=== PATIENT | female | born 1985 | race Caucasian/White ===

== ENCOUNTER → 2018-01-09 16:06 | Outpatient (CLI) | payer OTHER, SELFPAY ==
[2018-01-17 12:08] LABS: Brief History NOT GIVEN; Calc Gestational Age 18.1; Est Date Determined by US; Maternal Weight 142 lbs; Mother Ethnic Origin CAUCASIAN; Prev Pregnancies Down Syndrome N
== END ==
PROVIDERS: PCP Family Medicine; Visit Provider Specialist
DX: Z36.9 Encounter for antenatal screening, unspecified (principal); Z3A.18 18 weeks gestation of pregnancy
CPT/HCPCS: 36415; 82105

== ENCOUNTER → 2018-01-22 15:50 | Outpatient (CLI) | payer OTHER, SELFPAY ==
--- NOTE | 2018-01-22 15:52 | DI.US.S_ITS ---
PROCEDURE: US OB >= 14 WEEKS FETUS INDICATIONS: 32 year-old female. Assess growth and anatomy. OUTSIDE/PRIOR DATING DATA: Last menstrual period (LMP): 09/05/17. LMP-based estimated date of delivery (EJ): 06/11/18. First dating scan (date and location): 10/30/17 at [facility]. Estimated date of delivery (EJ) from first dating scan: 06/11/18. TECHNIQUE: Real-time scanning was performed of the fetus, with image documentation and biometric measurements. Endovaginal scanning: No COMPARISON: [facility], , OB COMPLETE LESS THAN 14 WKS, 10/30/2017, 8:19. [facility], US OB >= 14 WEEKS FETUS, 01/09/2018, 11:35. FINDINGS: General: A single living intrauterine gestation is present. Presentation: Breech. Placenta: Placental position is posterior, without previa. Amniotic fluid index: 14.4 cm, normal range is 5-24 cm. heart rate: 152 beats per minute. Maternal cervical canal: 6.2 cm long. Normal lower limit is 2.5 cm. biometrics: Biparietal diameter: 4.5 cm equals 19 weeks 5 days. Head circumference: 17.8 cm equals 20 weeks 2 days. Abdominal circumference: 15.8 cm equals 21 weeks zero days. Femur length: 3.4 cm equals 20 weeks 4 days. Estimated gestational age from initial scan: 20 weeks zero days. Composite gestational age from present scan: 20 weeks 3 days Estimated weight and percentile: 369 g, 82nd percentile Measurement variability for biometric dating: +/- 7 days from 14 weeks to 15 weeks 6 days gestation, +/- 10 days from 16 weeks to 21 weeks 6 days gestation, +/- 2 weeks from 22 weeks to 27 weeks 6 days gestation, +/- 3 weeks for 28 weeks gestation or later. weight reference: 4500 g or EFW >90/95% is considered macrosomia or large for gestational age. EFW <10% is small for gestational age. EFW 5% or less is considered intra-uterine growth restriction. Anatomic survey: Neuro: Ventricles are non-dilated at less than 10 mm. Cisterna magna is normal at 3-11 mm. Cerebellum is normal in size and morphology. Nuchal skin fold: Normal at less than 6 mm between 14-21 weeks gestational age. Face: Nose and lips, facial profile are normal. Spine: No evidence for spina bifida. Heart: 4-chambered heart is present, with normal ventricular outflow tracts. Diaphragm: Diaphragm is intact. Stomach: Left-sided stomach is present. Kidneys: Mild left renal pyelectasis with renal pelvis measuring 5.0 mm. Right kidney is normal. Cord: 3-vessel cord has orthotopic insertion. Bladder: Normal in size. Extremities: All 4 extremities identified. IMPRESSION: 1. Single living intrauterine gestation demonstrates appropriate interval growth, with estimated weight at the 82nd percentile. 2. Mild left hydronephrosis, otherwise anatomic survey is normal. Recommend followup. Dictated by: Juan ROPER Interpreted: Kyrie Hendrix MD on 01/23/2018 at 8:42 Approved by: Quentin Ibarra M.D. on 01/26/2018 at 10:06
== END ==
PROVIDERS: PCP Family Medicine; Visit Provider Specialist
DX: Z36.89 Encounter for other specified antenatal screening (principal); Z3A.20 20 weeks gestation of pregnancy
CPT/HCPCS: 76811

== ENCOUNTER → 2018-02-11 14:16 | Outpatient (CLI) | payer OTHER, SELFPAY ==
[2018-02-11 16:11] LABS: Urine N gonorrhoeae NOT DETECTED
[2018-02-11 16:17] LABS: Urine Chlamydia NOT DETECTED
== END ==
PROVIDERS: PCP Family Medicine; Visit Provider Specialist
DX: Z34.82 Encounter for supervision of other normal pregnancy, second trimester (principal); Z3A.22 22 weeks gestation of pregnancy
CPT/HCPCS: 87491; 87591

== ENCOUNTER → 2018-03-16 09:59 | Outpatient (CLI) | payer OTHER, SELFPAY ==
[2018-03-16 14:38] LABS: Hematocrit 31.5 % (36-46); Hemoglobin 10.9 g/dL (12.0-16.0)
[2018-03-16 15:06] LABS: GTT (PREG) 1 Hour PP 50gm Dose 114 mg/dL (76-139)
== END ==
PROVIDERS: PCP Family Medicine; Visit Provider Specialist
DX: Z3A.22 22 weeks gestation of pregnancy (principal); Z34.82 Encounter for supervision of other normal pregnancy, second trimester
CPT/HCPCS: 36415; 82950; 85014; 85018

== ENCOUNTER → 2018-03-25 08:15 | Outpatient (CLI) | payer OTHER, SELFPAY ==
--- NOTE | 2018-03-25 10:59 | DI.US.S_ITS ---
ULTRASOUND OF LEFT AXILLA: 03/25/2018 CLINICAL: Palpable left axilla lump. No prior exams were available for comparison. Grayscale and Doppler ultrasound of the left axilla were performed. Targeted ultrasound was performed in the region of the patient's reported palpable abnormality in the left axilla. A single morphologically normal left axillary lymph node is identified. IMPRESSION: BENIGN Negative ultrasound evaluation of the area of the patient's reported focal palpable abnormality in the left axilla, with only a morphologically normal lymph node demonstrated. There is no sonographic evidence of malignancy. Recommend clinical follow-up for further evaluation and management of the patient's reported symptoms, with return for re-imaging as needed on a clinical basis. Annual screening mammography is also recommended beginning at age 40 (or earlier if the patient has signfiicant risk factors for breast cancer development). These results and recommendations were discussed with the patient by telephone by Dr. Valladares at approximately 9:00 am on 03/25/2018. This exam was interpreted at Station ID: [id number]. Electronically Signed By: Hal Valladares M.D. ecl/:03/25/2018 13:14:05 letter sent: Clinical Evaluation Ultrasound BI-RADS: 2 Benign
== END ==
PROVIDERS: PCP Family Medicine; Visit Provider Specialist
DX: R22.32 Localized swelling, mass and lump, left upper limb (principal)
CPT/HCPCS: 76882

== ENCOUNTER → 2018-05-07 08:59 | Outpatient (CLI) | payer OTHER, SELFPAY ==
[2018-05-08 11:42] LABS: Strep Grp B PCR NEG for Grp B Strep
== END ==
PROVIDERS: PCP Family Medicine; Visit Provider Specialist
DX: Z34.83 Encounter for supervision of other normal pregnancy, third trimester (principal)
CPT/HCPCS: 87653

== ENCOUNTER 2018-06-15 08:27 | Inpatient (IN) | payer OTHER, SELFPAY ==
[2018-06-15 10:29] LABS: Add Manual Diff / Slide Review NO; Basophils Percent Auto 0.2 % (0-2); Eosinophils Percent Auto 0.3 % (2-4); Hematocrit 36.4 % (36-46); Hemoglobin 12.8 g/dL (12.0-16.0); Lymphocytes Percent Auto 15.9 % (25-40); Mean Corpuscular Hemoglobin 34.6 PG (26-34); Mean Corpuscular Volume 98.7 fL (80-100); Monocytes Percent Auto 7.3 % (3-14); Neutrophils Absolute Auto 7500 /uL (3000-5900); Neutrophils Percent Auto 76.3 % (50-75); Platelet Count 275 X10^3/uL (150-400); Red Blood Cell Count 3.69 X10^6/uL (4.0-5.2); Red Cell Distribution Width 13.5 % (11.6-14.8); White Blood Cell Count 9.8 X10^3/uL (4.5-11.0)
[2018-06-15] MEDS: miSOPROStol 25 MCG TABLET VAG (10:49)
[2018-06-15 14:36] VITALS: BP 117/73
--- NOTE | 2018-06-15 16:38 | P.HPOB_ITS ---
OB HPI Date/Time Date of admission: 06/15/18 Date Patient Seen: 06/15/18 Time Patient Seen: 10:36 History of Present Condition Chief complaint: OBS : 2 Para: 1 Estimated Date of Delivery: 06/12/18 Estimated Gestational Age (weeks): 40 Narrative: Shira Anthony is a 33 year old female at 40-,3/7 weeks by dates admitted for induction for oligohydramnios Indications Indication for induction OB: other (Oligohydramnios) History of Present care: good care, initiated at week # (8), number of visits (16) and pounds weight gain (43) Dating criteria: LMP confirmed by 1st trimester US Ultrasounds: abnormal US findings Abnormal ultrasound findings: Left hydronephrosis on 20 week ultrasound that resolved at 28 weeks Obstetrical complications: none Medical complications: none Preadmission Labs Blood type: A (+) positive -: Antibody screen: negative, GBS status: negative, HBsAG: negative, HIV: negative, HSV 1: negative, HSV 2: positive and RPR/VDLR: negative -: Chlamydia screen: not detected and Gonorrhea screen: not detected -: Rubella: immune and Varicella: immune HCAB: negative Sequential screen: Normal Cell-free DNA: Normal 1 hr GTT: 114 Prior (ies) History: 07/06/2015 40 week gestation 8 lb vaginal delivery epidural Evaluation Evaluation Laboratory results: Laboratory Tests 06/15/18 06/15/18 10:00 10:00 WBC 9.8 RBC 3.69 L Hgb 12.8 Hct 36.4 MCV 98.7 MCH 34.6 H MCHC 35.0 RDW 13.5 Plt Count 275 Neut % (Auto) 76.3 H Lymph % (Auto) 15.9 L [place] % (Auto) 7.3 Eos % (Auto) 0.3 L Baso % (Auto) 0.2 Neut # (Auto) 7500 H Blood Type A Positive Antibody Screen Negative PFSH Medical History Anxiety (Chronic) Chronic cough (Chronic) Heavy menstrual period (Chronic) Kidney stones (Chronic ~2002) Painful menstrual periods (Chronic) Chickenpox (Resolved ~1991) Surgical History Status post wrist surgery (Resolved ~2009) Anesthesia (Inactive) History of lithotripsy (~2002) Family History Father Age: 66 Type 2 diabetes mellitus High cholesterol Mother Age: 61 High cholesterol Grandfather No problems noted. Grandmother No problems noted. Family/Other No problems noted. Social History Smoking Status: Never smoker Meds Home Medications Medication Instructions Recorded Confirmed Type vit-iron fum-folic ac 1 cap PO QDAY #0 04/08/17 06/15/18 History [Mynatal] acyclovir 400 mg tablet 400 mg PO BID #60 tab 05/20/18 06/15/18 Rx Allergies Allergy/AdvReac Type Severity Reaction Status Date / Time No Known Allergies Allergy Uncoded 05/13/18 13:36 Review of Systems Review of Systems Patient denies headaches, scotomata, epigastric pain. She had some increased vaginal discharge which was negative for ferning on dry slide. She has noted good movement. No contractions. All systems reviewed & are unremarkable except as noted in HPI and below Exam Vital Signs (past 8 hours): - 06/15/18 14:36 Blood Pressure 117/73 Narrative Exam Narrative: HEENT exam within normal limits. Lungs are clear to auscultation percussion. Heart is regular rate and rhythm no S3-S4 or murmurs. No thyromegaly. The abdomen is gravid. Fundal height of 38 cm. Cervix is closed, posterior, and 50% -1 station. Extremities without edema and nontender. On ultrasound the patient had no fluid. Objective Labs Result Diagrams: 06/15/18 10:00 Labs: Laboratory Results - last 24 hr 06/15/18 06/15/18 10:00 10:00 WBC 9.8 RBC 3.69 L Hgb 12.8 Hct 36.4 MCV 98.7 MCH 34.6 H MCHC 35.0 RDW 13.5 Plt Count 275 Neut % (Auto) 76.3 H Lymph % (Auto) 15.9 L [place] % (Auto) 7.3 Eos % (Auto) 0.3 L Baso % (Auto) 0.2 Neut # (Auto) 7500 H Blood Type A Positive Antibody Screen Negative Assessment and Plan (1) Oligohydramnios antepartum: Current visit: Yes Status: Acute (2) Postmaturity , 40-42 weeks gestation: Current visit: Yes Status: Acute Plan: Plan: Patient at 40-,3/7 weeks by dates with oligohydramnios and non favorable cervix was admitted for Prostin induction.
[2018-06-15] MEDS: LACTATED RINGERS 1,000 ML 100 ML IV (17:12)
--- NOTE | 2018-06-16 08:03 | PM.OBPNLAB ---
Date/Time Date Patient Seen: 06/16/18 Time Patient Seen: 08:03 Pain Control Pain control: tolerating well Pelvic Exam Dilation (cm): 1 Effacement (%): 75 station: 0 Amniotic membrane status: Intact Contractions Contractions on admission: irregular Monitor mode: External Contraction intensity: Mild Status status: Category l Heart Rate Baseline: 140 Monitor Accelerations: Present Monitor Decelerations: Absent Monitor Variability: Moderate Assessment and Plan Assessment: induction ongoing Plan: begin patient augmentation
[2018-06-16] MEDS: OXYTOCIN PREMIX 30 UNIT/500 ML PLAST..BAG IV (08:48)
[2018-06-16] MEDS: miSOPROStol 200 MCG TABLET 800 MCG PR (13:05)
[2018-06-16] MEDS: OXYTOCIN 10 UNIT/ML VIAL IM (13:10)
[2018-06-16] MEDS: TERBUTALINE 1 MG/ML VIAL 0.25 MG SUBCUT (13:10)
--- NOTE | 2018-06-16 13:47 | P.PCNOB_ITS ---
Events: Oligohydramnios Delivery date: 06/16/18 Intrapartal events: Extended Bradycardia Induction method: per misoprostol protocol (Followed by Pitocin) Delivery monitor: external FHT and external uterine Route of delivery: Laceration description: None Estimated blood loss (mL): 400 Anesthesia type: Epidural Narrative: Patient arrived on Labor and delivery for induction for postdates with oligohydramnios. She received 1 dose of Cytotec. She had contractions that prevented further Cytotec and due to the continued non favorability the cervix decision was made to postpone Pitocin. Patient had some rest and then Pitocin was begun the next morning. The patient progressed. There were some intermittent late decelerations but good variability. Patient received an epidural catheter for pain control. Fetus had a prolonged deceleration. During attempts to resuscitate the baby with change of position, O2, and fluid bolus and inadvertent bolus Pitocin was run in. The patient was given subcu terbutaline. At that time the patient had gone from 4cm to complete dilation. She was able to push and deliver spontaneously a viable female . The was placed on maternal abdomen. After cord stopped pulsating the cord was clamped and cut. The placenta delivered spontaneously, intact, with 3 vessels. Likely due to the terbutaline the patient had uterine atony. She was given IM Pitocin, perirectal 100 mg Cytotec. Patient did not have any cervical , vaginal, or perineal tears. Baby 1: Infant gender: Female Presentation: vertex position: Right Occiput Anterior Placenta delivery description: Spontaneous cord vessel description: 3 Vessels score (1 min): 8 score (5 min): 9 Plan for aftercare: Routine care
[2018-06-16] MEDS: IBUPROFEN 600 MG TABLET PO ×2 (16:23→22:12)
[2018-06-17] MEDS: IBUPROFEN 600 MG TABLET PO ×3 (03:36→17:19)
[2018-06-17 07:36] LABS: Add Manual Diff / Slide Review NO; Basophils Percent Auto 0.2 % (0-2); Eosinophils Percent Auto 0.4 % (2-4); Hematocrit 29.5 % (36-46); Hemoglobin 10.2 g/dL (12.0-16.0); Lymphocytes Percent Auto 10.5 % (25-40); Mean Corpuscular HGB Conc 34.7 % (30-36); Mean Corpuscular Hemoglobin 34.8 PG (26-34); Mean Corpuscular Volume 100.2 fL (80-100); Monocytes Percent Auto 5.8 % (3-14); Neutrophils Absolute Auto 11700 /uL (3000-5900); Neutrophils Percent Auto 83.1 % (50-75); Platelet Count 216 X10^3/uL (150-400); Red Blood Cell Count 2.94 X10^6/uL (4.0-5.2); Red Cell Distribution Width 13.7 % (11.6-14.8)
[2018-06-17] MEDS: OXYCODONE/ACETAMINOPHEN 5/325 TABLET 1 TAB PO ×3 (08:19→22:34)
[2018-06-17] MEDS: DOCUSATE 250 MG CAPSULE PO (09:54)
[2018-06-18] MEDS: IBUPROFEN 600 MG TABLET PO ×3 (01:11→14:17)
[2018-06-18] MEDS: OXYCODONE/ACETAMINOPHEN 5/325 TABLET 1 TAB PO ×3 (06:26→14:18)
--- NOTE | 2018-06-18 07:00 | PM.OBDS.1 ---
Discharge Providers Date of admission: 06/15/18 08:27 Primary care physician: Lexie Quinn MD Consults: 06/16/18 13:33 Consult to Business Transformation Consultant Routine Comment: Discharge provider: Kavita Miller MD Discharge Date: 06/18/18 Summary Date Patient Seen: 06/18/18 Time Patient Seen: 07:01 Hospital Course: Patient arrived on Labor and delivery for induction for oligohydramnios at 40-,3/7 weeks by dates. Patient had a spontaneous vaginal delivery of a viable female . Both she and the baby did well . Patient denies any signs or symptoms of preeclampsia. She is urinating and ambulating. Patient's abdomen is soft, nontender. Uterus is firm, at U, appropriately tender. Mild lochia. Perineum intact. Extremities without edema and nontender Peripartum Data Delivery Method: Natural Vaginal Laceration description: None Procedures: Prostin and Pitocin induction. Epidural catheter. Vaginal delivery. complications: none Discharge Diagnosis (1) Oligohydramnios antepartum: Status: Acute (2) Postmaturity , 40-42 weeks gestation: Status: Acute (3) Vaginal delivery: Status: Acute Status at Discharge Functional status at discharge: independent ambulation Overall status at discharge: patient is progressing back to baseline Time Spent with Patient Total time spent providing and/or coordinating discharge services: Less than 30 minutes Objective Labs Result Diagrams: 06/17/18 07:13 Labs: Laboratory Results - last 24 hr 06/17/18 07:13 WBC 14.0 H RBC 2.94 L Hgb 10.2 L Hct 29.5 L MCV 100.2 H MCH 34.8 H MCHC 34.7 RDW 13.7 Plt Count 216 Neut % (Auto) 83.1 H Lymph % (Auto) 10.5 L [place] % (Auto) 5.8 Eos % (Auto) 0.4 L Baso % (Auto) 0.2 Neut # (Auto) 69201 H Discharge Plan Discharge Plan Patient Disposition: Home Discharge Med Rec/Prescriptions Prescriptions: New oxycodone-acetaminophen 5-325 mg Tablet 1 tab PO Q4HR PRN (Reason: Pain, Moderate (4-6)) Qty: 20 RF: 0 ibuprofen 600 mg Tablet 600 mg PO Q6HR PRN (Reason: Pain, Mild (1-3)) Qty: 30 RF: 0 docusate sodium 250 mg Capsule 250 mg PO DAILY Qty: 20 RF: 0 Continue vit-iron fum-folic ac [Mynatal] 1 EACH capsule 1 cap PO QDAY Qty: 0 RF: 0 Discontinued acyclovir 400 mg tablet 400 mg PO BID Qty: 60 RF: 0 Follow up/Referrals: Kavita Miller MD [Physician] - 1 Month ( exam) Lexie Quinn MD [Primary Care Provider] - Provider Discharge Instructions Diet: Regular Activity: Nothing in vagina for 4 week Skin/Wound/Dressing Care Report to your healthcare provider any signs of infection, such as:: chills, fever, night sweats and unusual drainage Visit Report/Discharge Packet Instructions: Oxytocin Injection Visit Report Forms: Stroke Signs & Symptoms Discharge Data Primary Care Provider: Lexie Quinn Attending Provider: Kavita Miller Admit Date/Time: 06/15/18 08:27
[2018-06-18 08:04] VITALS: BP 117/73; PULSE 70; RESP 18; TEMP 36.3
[2018-06-18] MEDS: DOCUSATE 250 MG CAPSULE PO (08:40)
== END 2018-06-18 14:35 | disposition home or self-care (01) | DRG 807 ==
PROVIDERS: Admitting Provider Specialist; PCP Family Medicine; Visit Provider Specialist
DX: O41.03X0 Oligohydramnios, third trimester, not applicable or unspecified (principal); Z37.0 Single live birth; Z3A.40 40 weeks gestation of pregnancy; O48.0 Post-term pregnancy; O76 Abnormality in fetal heart rate and rhythm complicating labor and delivery
CPT/HCPCS: 01967; 36415; 59050; 59400; 85025; 86850; 86900; 86901; G0379; J2590; J3010; S0191

== ENCOUNTER → 2018-07-05 15:05 | Outpatient (CLI) | payer OTHER, SELFPAY | PROVIDERS: PCP Family Medicine; Visit Provider Physician Assistant | DX: N39.0 Urinary tract infection, site not specified (principal) | CPT/HCPCS: 87077; 87086; 87186 ==

== ENCOUNTER → 2018-07-14 13:47 | Outpatient (CLI) | payer OTHER, SELFPAY ==
[2018-07-14 13:54] LABS: Bacteria Urine None Seen; WBC Urine None Seen (0-5/HPF)
[2018-07-14 14:24] LABS: Appearance Urine UA CLEAR; Bilirubin Urine UA NEGATIVE (NEGATIVE); Color Urine UA YELLOW; Glucose Urine UA NEGATIVE (Normal); Ketones Urine UA NEGATIVE (NEGATIVE); Leukocyte Esterase Urine UA TRACE (NEGATIVE); Nitrite Urine UA NEGATIVE (Negative); Occult Blood Urine UA 1+ (Negative); Protein Urine UA NEGATIVE (Negative); Specific Gravity Urine UA 1.025 (1.000-1.035); Urobilinogen Urine UA 0.2 E.U./dL (0.2)
[2018-07-14 14:28] LABS: Culture Indicated Urine Cult Not Indicated; RBC Urine 5-10/HPF (0-5/HPF)
== END ==
PROVIDERS: PCP Family Medicine; Visit Provider Obstetrics & Gynecology
DX: R30.0 Dysuria (principal)
CPT/HCPCS: 81001

== ENCOUNTER 2018-07-26 09:12 | Emergency (ER) | payer OTHER, SELFPAY ==
--- NOTE | 2018-07-26 09:17 | ED.ABDPAIN ---
HPI - Abdominal Pain General Chief Complaint: Abdominal Pain Stated Complaint: 1m post , constant abd pain, uti Time Seen by Provider: 07/26/18 09:17 Source: patient Mode of arrival: ambulatory Limitations: no limitations History of Present Illness HPI narrative: Patient is a otherwise healthy approximately 1 month who is . States that the breast feed is going well. She is bonding with her baby. Is here for evaluation of dysuria and urinary frequency. She was seen in the walk-in clinic a couple weeks ago. Was diagnosed with a urinary tract infection. Was sent home on Keflex. She completed the course of this. The urine culture that time showed [id number] colony-forming units of E coli that was pansensitive. She states that the symptoms did improve for a very short period of time but then returned. She saw her OB doctor who again did a urinalysis. The micro/urine culture from this was not available. She states that she was started on Bactrim which again improved her symptoms but then after she stopped the medication they returned. She is also here for abdominal pain around the umbilicus. Is having some vaginal discharge. Has not had sexual intercourse since delivery. Has never had a sexually transmitted infection in the past. Has not concern for sexually transmitted infections. Related Data Home Medications Medication Instructions Recorded Confirmed vit-iron fum-folic ac 1 cap PO QDAY #0 04/08/17 07/23/18 [Mynatal] Previous Rx's Medication Instructions Recorded ibuprofen 600 mg PO Q6HR PRN #30 tab 06/17/18 fluconazole [Diflucan] 100 mg PO DAILY #2 tab 07/26/18 oxycodone-acetaminophen [Percocet] 1 tab PO Q4-6H PRN #7 tab 07/26/18 phenazopyridine [Pyridium] 100 mg PO TID PRN 2 Days #9 tab 07/26/18 Allergies Allergy/AdvReac Type Severity Reaction Status Date / Time No Known Allergies Allergy Uncoded 07/23/18 09:25 Review of Systems Constitutional Denies fever(s) and Denies headache(s) ENT Ears, Nose, Mouth, and Throat: Denies headache(s) Cardiovascular Denies chest pain and Denies dyspnea Respiratory Denies dyspnea Gastrointestinal Gastrointestinal: Reports abdominal pain, Denies melena, Reports diarrhea, Denies nausea and Denies vomiting Genitourinary Denies hematuria, Denies difficulty voiding, Reports dysuria, Reports urinary urgency and Reports vaginal discharge Musculoskeletal Denies myalgias and Denies arthralgias Integumentary/Breasts Denies rash Neurologic Denies headache(s) Hematologic/Lymphatic Comments: Not on anticoagulation Allergic/Immunologic Denies urticaria PFSH Medical History Anxiety (Chronic) Chronic cough (Chronic) Heavy menstrual period (Chronic) Kidney stones (Chronic ~2002) Painful menstrual periods (Chronic) Chickenpox (Resolved ~1991) Surgical History Status post wrist surgery (Resolved ~2009) Anesthesia (Inactive) History of lithotripsy (~2002) Family History Father Age: 66 Type 2 diabetes mellitus High cholesterol Mother Age: 61 High cholesterol Grandfather No problems noted. Grandmother No problems noted. Family/Other No problems noted. Social History Smoking Status: Never smoker Exam Initial Vital Signs Initial Vital Signs: Vital Signs Temperature 98.6 F 07/26/18 09:27 Pulse Rate 91 H 07/26/18 09:27 Respiratory Rate 20 07/26/18 09:27 Blood Pressure 118/104 H 07/26/18 09:27 Pulse Oximetry 100 07/26/18 09:27 Const General: cooperative, healthy appearing, comfortable, well developed, well groomed and No acute distress Orientation: alert, awake and oriented x3 HENMT Head: normal to inspection and normocephalic Resp Effort & Inspection: normal respiratory effort Auscultation: clear to auscultation bilaterally Cardio Rate: regular rate Rhythm: regular rhythm Pulses: radial pulses present GI Other: Patient has a reducible umbilical hernia that she states is the cause of her abdominal pain. Back/Spine/Pelvis Back: No CVA tenderness Skin Lesions: no lesions Rashes: no rashes Neuro General: alert, awake and oriented x3 Extrem General: normal to inspection and capillary refill normal Psych Appearance: grossly normal and well kempt Course Orders Ordered: ED Orders 07/26/18 10:00 Complete Blood Count AUTO DIFF Stat Comprehensive Metabolic Panel Stat Lipase Stat 07/26/18 11:08 CT kidney ureter bladder (KUB) Stat Discontinued Medications Oxycodone/Acetaminophen (Percocet 5/325) 1 tab PO NOW ONE Stop: 07/26/18 11:08 Last Admin: 07/26/18 11:23 Dose: 1 tab Vital Signs - 8 hr 07/26/18 09:27 07/26/18 11:39 Temperature 98.6 F Pulse Rate 91 H 69 Respiratory Rate 20 15 Blood Pressure 118/104 H Blood Pressure [Left Arm] 116/75 Pulse Oximetry 100 100 MDM - Abdominal Pain Medical Records Attestation: I reviewed the patient's medical records. Lab Data Attestation: I reviewed the patient's lab results. Result diagrams: 07/26/18 10:00 07/26/18 10:00 Lab Results 07/26/18 07/26/18 07/26/18 Range/Units 10:00 10:00 10:00 WBC 6.8 (4.5-11.0) X10^3/uL RBC 3.87 L (4.0-5.2) X10^6/uL Hgb 12.7 (12.0-16.0) g/dL Hct 37.3 (36-46) % MCV 96.5 (80-100) fL MCH 32.8 (26-34) PG MCHC 34.0 (30-36) % RDW 12.0 (11.6-14.8) % Plt Count 224 (150-400) X10^3/uL Neut % (Auto) 68.7 (50-75) % Lymph % (Auto) 24.7 L (25-40) % [place] % (Auto) 5.1 (3-14) % Eos % (Auto) 1.1 L (2-4) % Baso % (Auto) 0.4 (0-2) % Neut # (Auto) 4700 (6316-0406) /uL Sodium 143 (137-145) mmol/L Potassium 4.0 (3.4-5.1) mmol/L Chloride 105 (98-107) mmol/L Carbon Dioxide 26 (22-32) mmol/L BUN 14 (7-17) mg/dL Creatinine 0.60 (0.52-1.04) mg/dL Estimated GFR > 60.0 (>60) mL/min BUN/Creatinine Ratio 23.3 H (6-22) Glucose 75 (70-100) mg/dL Calcium 9.1 (8.4-10.2) mg/dL Total Bilirubin 0.4 (0.2-1.3) mg/dL AST 38 H (14-36) IU/L ALT 40 (9-52) IU/L Alkaline Phosphatase 70 (38-126) U/L Total Protein 7.0 (6.3-8.2) g/dL Albumin 4.6 (3.5-5.0) g/dL Globulin 2.4 (1.7-4.1) g/dL Albumin/Globulin Ratio 1.9 (1.0-2.8) Lipase 44 (23-300) U/L Urine RBC (0-5/HPF) Urine WBC (0-5/HPF) Ur Squamous Epith Cells Urine Bacteria (None) Ur Culture Indicated? Micro UA Comment Ur Chlamydia DNA (PCR) N gonorrhoeae DNA (PCR) 07/26/18 07/26/18 Range/Units Unknown Unknown WBC (4.5-11.0) X10^3/uL RBC (4.0-5.2) X10^6/uL Hgb (12.0-16.0) g/dL Hct (36-46) % MCV (80-100) fL MCH (26-34) PG MCHC (30-36) % RDW (11.6-14.8) % Plt Count (150-400) X10^3/uL Neut % (Auto) (50-75) % Lymph % (Auto) (25-40) % [place] % (Auto) (3-14) % Eos % (Auto) (2-4) % Baso % (Auto) (0-2) % Neut # (Auto) (8615-4815) /uL Sodium (137-145) mmol/L Potassium (3.4-5.1) mmol/L Chloride (98-107) mmol/L Carbon Dioxide (22-32) mmol/L BUN (7-17) mg/dL Creatinine (0.52-1.04) mg/dL Estimated GFR (>60) mL/min BUN/Creatinine Ratio (6-22) Glucose (70-100) mg/dL Calcium (8.4-10.2) mg/dL Total Bilirubin (0.2-1.3) mg/dL AST (14-36) IU/L ALT (9-52) IU/L Alkaline Phosphatase (38-126) U/L Total Protein (6.3-8.2) g/dL Albumin (3.5-5.0) g/dL Globulin (1.7-4.1) g/dL Albumin/Globulin Ratio (1.0-2.8) Lipase (23-300) U/L Urine RBC None seen (0-5/HPF) Urine WBC 30-100/hpf H (0-5/HPF) Ur Squamous Epith Cells 5-10 /hpf H Urine Bacteria Few (2-10) H (None) Ur Culture Indicated? Not Reportable Micro UA Comment Not Reportable Ur Chlamydia DNA (PCR) Not detected N gonorrhoeae DNA (PCR) Not detected Point of care testing: Point of Care Testing Test Results Negative Urine Dip Bedside Urine Glucose Negative Bedside Urine Bilirubin - Negative Bedside Urine Ketone - Negative Urine Specific [place] 1.030 Bedside Urine Occult Blood - Negative Bedside Urine pH 6.0 Bedside Urine Protein - Negative Bedside Urine Urobilinogen - Negative Bedside Urine Nitrite - Negative Bedside Urine Leukocytes - Negative Esterase Imaging Data CT scan - abdomen: Radiologist's impression: PROCEDURE: CT KIDNEY URETER BLADDER (KUB) INDICATIONS: Left-sided flank pain concern for kidney stone TECHNIQUE: Noncontrast 5 mm thick sections acquired from the diaphragms to the symphysis. 5 mm thick coronal and sagittal reformats were then performed. For radiation dose reduction, the following was used: automated exposure control, adjustment of mA and/or kV according to patient size. COMPARISON: None. FINDINGS: Image quality: Excellent. Lung bases: Lung bases are clear. Heart size is normal. Urinary system: Both kidneys are normal in size. 6 mm diameter calculus within the right interpolar kidney. 3 mm diameter nonobstructing calculus in the inferior pole left kidney. No hydronephrosis or perinephric fat stranding. Both ureters appear non-dilated throughout their expected courses. Bladder wall thickness is normal; no calcified bladder stones. Other solid organs: Liver is normal in size. Gallbladder is within normal limits. Pancreas is normal in contours. Spleen is normal in size. No adrenal nodules. Peritoneum and bowel: Unenhanced bowel loops demonstrate normal wall thickness and caliber. No free fluid or air. Normal appendix. Nodes and vessels: No retroperitoneal or mesenteric adenopathy by size criteria. Aorta and inferior vena cava are normal in caliber. Abdominal wall: No ventral hernias. Pelvis: No free pelvic fluid. No inguinal hernias or adenopathy. Bones: No suspicious bony lesions. No vertebral body compression fractures. IMPRESSION: 1. Nonobstructing bilateral renal calculi. No evidence of ureteral calcification, nor obstruction. 2. Normal appendix. Dictated by: Chante Figueroa M.D. on 07/26/2018 at 11:48 MDM Narrative Medical decision making narrative: Patient here with dysuria for the past several weeks. Has been treated with Keflex and Bactrim. The most recent urine culture shows a pansensitive E coli. Bactrim should have covered this infection. She returns today with dysuria and urinary frequency and hesitancy. Urinalysis today has many epi cells which makes the interpretation difficult. A urine culture was obtained. Patient was informed of this. She was instructed that she would get a call if this returns needing antibiotics. Will send patient home with Pyridium for the bladder spasms. There is also the potential that she has a urinary tract infection secondary to which she says is a vaginal discharge. I will hold on a pelvic exam and treat her presuming that there is a yeast infection. She was instructed to start taking the Pyridium and that this did not improve her symptoms to start taking the Diflucan. Patient also with a reducible umbilical hernia. CT scan shows no signs of obstruction or incarceration. Patient has bilateral nephrolithiasis. I doubt that this is the cause of her symptoms today. She was given the phone number for follow-up with General surgery. We did discuss return precautions with regard to the umbilical hernia. She was also instructed to contact her primary care doctor and also her OBGYN. All questions answered. was at bedside for these discussions. They expressed understanding and agreement. Discharge Plan Departure Patient Disposition: Home Clinical Impression: Hernia, umbilical, Dysuria Instructions: Hernias: Causes and Treatment Options, DI for Dysuria -- Adult, DI Umbilical Hernia-Child Activity Restrictions/Additional Instructions: A urine culture was taken today. This takes a couple days to return. We will call you if it shows an infection that requires antibiotics. I also recommend you contact the eyel[facility] surgeons group at [phone] to discuss a follow-up for your umbilical hernia. I would also contact your primary care doctor regarding this as well. Like we discussed I recommend taking the Pyridium and if this does not improve your symptoms start taking the Diflucan. I would also recommend contact your OBGYN. Return to the emergency department for any new symptoms, worsening symptoms, inability to reduce the umbilical hernia like we discussed or any other concerning symptoms. Prescriptions: New fluconazole [Diflucan] 100 mg tablet 100 mg PO DAILY Qty: 2 RF: 0 oxycodone-acetaminophen [Percocet] 5-325 mg tablet 1 tab PO Q4-6H PRN (Reason: pain) Qty: 7 RF: 0 phenazopyridine [Pyridium] 100 mg tablet 100 mg PO TID PRN (Reason: pain) 2 Days Qty: 9 RF: 0 No Action vit-iron fum-folic ac [Mynatal] 1 EACH capsule 1 cap PO QDAY Qty: 0 RF: 0 ibuprofen 600 mg Tablet 600 mg PO Q6HR PRN (Reason: Pain, Mild (1-3)) Qty: 30 RF: 0 Referrals: Dioni Byrd MD [Physician] - Kavita Miller MD [Physician] - Lexie Quinn MD [Primary Care Provider] -
[2018-07-26 09:27] VITALS: BP 118/104; PULSE 91; RESP 20; TEMP 37; O2SAT 100; BMI 22.8
[2018-07-26 10:19] LABS: Add Manual Diff / Slide Review NO; Basophils Percent Auto 0.4 % (0-2); Eosinophils Percent Auto 1.1 % (2-4); Hematocrit 37.3 % (36-46); Hemoglobin 12.7 g/dL (12.0-16.0); Lymphocytes Percent Auto 24.7 % (25-40); Mean Corpuscular Hemoglobin 32.8 PG (26-34); Mean Corpuscular Volume 96.5 fL (80-100); Monocytes Percent Auto 5.1 % (3-14); Neutrophils Absolute Auto 4700 /uL (3000-5900); Neutrophils Percent Auto 68.7 % (50-75); Platelet Count 224 X10^3/uL (150-400); Red Blood Cell Count 3.87 X10^6/uL (4.0-5.2); White Blood Cell Count 6.8 X10^3/uL (4.5-11.0)
[2018-07-26 10:23] LABS: Bacteria Urine Few (2-10); RBC Urine None Seen (0-5/HPF); Squamous Epithelial Cell Urine 5-10 /HPF; WBC Urine 30-100/HPF (0-5/HPF)
[2018-07-26 10:30] LABS: Alanine Aminotransferase 40 IU/L (9-52); Albumin 4.6 g/dL (3.5-5.0); Albumin Globulin Ratio 1.9 (1.0-2.8); Alkaline Phosphatase 70 U/L (38-126); Aspartate Aminotransferase 38 IU/L (14-36); BUN Creatinine Ratio 23.3 (6-22); Bilirubin Total 0.4 mg/dL (0.2-1.3); Blood Urea Nitrogen 14 mg/dL (7-17); Calcium 9.1 mg/dL (8.4-10.2); Carbon Dioxide 26 mmol/L (22-32); Chloride 105 mmol/L (98-107); Estimated Glomerular Filt Rate > 60.0 mL/min (>60); Globulin 2.4 g/dL (1.7-4.1); Glucose 75 mg/dL (70-100); HEMOLYSIS < 15 (0-50); Lipase 44 U/L (23-300); Sodium 143 mmol/L (137-145)
--- NOTE | 2018-07-26 11:08 | DI.CT.S_ITS ---
PROCEDURE: CT KIDNEY URETER BLADDER (KUB) INDICATIONS: Left-sided flank pain concern for kidney stone TECHNIQUE: Noncontrast 5 mm thick sections acquired from the diaphragms to the symphysis. 5 mm thick coronal and sagittal reformats were then performed. For radiation dose reduction, the following was used: automated exposure control, adjustment of mA and/or kV according to patient size. COMPARISON: None. FINDINGS: Image quality: Excellent. Lung bases: Lung bases are clear. Heart size is normal. Urinary system: Both kidneys are normal in size. 6 mm diameter calculus within the right interpolar kidney. 3 mm diameter nonobstructing calculus in the inferior pole left kidney. No hydronephrosis or perinephric fat stranding. Both ureters appear non-dilated throughout their expected courses. Bladder wall thickness is normal; no calcified bladder stones. Other solid organs: Liver is normal in size. Gallbladder is within normal limits. Pancreas is normal in contours. Spleen is normal in size. No adrenal nodules. Peritoneum and bowel: Unenhanced bowel loops demonstrate normal wall thickness and caliber. No free fluid or air. Normal appendix. Nodes and vessels: No retroperitoneal or mesenteric adenopathy by size criteria. Aorta and inferior vena cava are normal in caliber. Abdominal wall: No ventral hernias. Pelvis: No free pelvic fluid. No inguinal hernias or adenopathy. Bones: No suspicious bony lesions. No vertebral body compression fractures. IMPRESSION: 1. Nonobstructing bilateral renal calculi. No evidence of ureteral calcification, nor obstruction. 2. Normal appendix. Dictated by: Chante Figueroa M.D. on 07/26/2018 at 11:48 Approved by: Chante Figueroa M.D. on 07/26/2018 at 11:49
[2018-07-26 11:09] LABS: Urine N gonorrhoeae NOT DETECTED
[2018-07-26 11:13] LABS: Urine Chlamydia NOT DETECTED
[2018-07-26] MEDS: OXYCODONE/ACETAMINOPHEN 5/325 TABLET 1 TAB PO (11:23)
[2018-07-26 11:39] VITALS: BP 116/75; PULSE 69; RESP 15; O2SAT 100
== END 2018-07-26 13:11 | disposition home or self-care (01) ==
PROVIDERS: Emergency Provider Emergency Medicine; PCP Family Medicine
DX: K42.9 Umbilical hernia without obstruction or gangrene (principal); R30.0 Dysuria
CPT/HCPCS: 36415; 74176; 80053; 81003; 81015; 81025; 83690; 85025; 87077; 87086; 87186; 87491; 87591; 99283; 99284

== ENCOUNTER → 2018-07-29 09:52 | Outpatient (CLI) | payer OTHER, SELFPAY | PROVIDERS: PCP Family Medicine; Visit Provider Family Medicine | DX: N89.8 Other specified noninflammatory disorders of vagina (principal); R30.0 Dysuria | CPT/HCPCS: 87070; 87077; 87086; 87186; 87205 ==

== ENCOUNTER → 2018-07-30 14:47 | Outpatient (CLI) | payer OTHER, SELFPAY ==
--- NOTE | 2018-07-30 14:49 | DI.US.S_ITS ---
PROCEDURE: US PELVIC COMPLETE INDICATIONS: PAIN IN PELVIS TECHNIQUE: Real-time scanning was performed of the pelvic organs, with image documentation. Additional endovaginal scanning was necessary due to incomplete visualization of the adnexal and endometrial structures by transabdominal scanning. COMPARISON: [facility], , PELVIC COMPLETE, 07/15/2017, 8:48. FINDINGS: Transabdominal scanning: Limited scanning through the kidneys shows no hydronephrosis. No pathologic free abdominal or pelvic fluid. Endovaginal scanning: Uterus: Uterus is normal in size at 8.1 x 4.6 x 6.8 cm. The endometrium measures 3.8 mm in combined thickness. Posterior intramural fibroid measuring 1.0 x 0.7 x 1.0 cm. Ovaries: Simple follicular cyst of the right ovary which otherwise is normal. The left ovary is not visualized. IMPRESSION: No source for pelvic pain and bleeding identified. Dictated by: Juan SPAULDING Interpreted: Souleymane Trujillo MD on 07/30/2018 at 15:58 Approved by: Souleymane Trujillo M.D. on 07/30/2018 at 16:43
== END ==
PROVIDERS: PCP Family Medicine; Visit Provider Family Medicine
DX: R10.2 Pelvic and perineal pain (principal); D25.1 Intramural leiomyoma of uterus; N83.01 Follicular cyst of right ovary
CPT/HCPCS: 76830; 76856

== ENCOUNTER → 2018-08-14 15:02 | Outpatient (CLI) | payer OTHER, SELFPAY ==
[2018-08-14 15:07] LABS: Bacteria Urine None Seen; RBC Urine None Seen (0-5/HPF); WBC Urine None Seen (0-5/HPF)
[2018-08-14 16:39] LABS: Appearance Urine UA CLEAR; Bilirubin Urine UA NEGATIVE (NEGATIVE); Color Urine UA YELLOW; Glucose Urine UA NEGATIVE (Normal); Ketones Urine UA NEGATIVE (NEGATIVE); Leukocyte Esterase Urine UA NEGATIVE (NEGATIVE); Nitrite Urine UA NEGATIVE (Negative); Occult Blood Urine UA TRACE-INTACT (Negative); Protein Urine UA NEGATIVE (Negative); Specific Gravity Urine UA 1.025 (1.000-1.035); Urobilinogen Urine UA 0.2 E.U./dL (0.2); pH Urine UA 5.5 (4.5-8.0)
== END ==
PROVIDERS: PCP Family Medicine; Visit Provider Family Medicine
DX: R30.0 Dysuria (principal)
CPT/HCPCS: 81001

== ENCOUNTER 2018-08-20 11:35 | Day surgery (SDC) | payer OTHER, SELFPAY ==
[2018-08-14 14:45] VITALS: BMI 22.7
[2018-08-20] VITALS (11 sets, daily range): BP systolic 111–127; BP diastolic 64–74; PULSE 77–104; RESP 10–20; TEMP 36.4–36.7; O2SAT 99–100; BMI 22.7
[2018-08-20] MEDS: LACTATED RINGERS 1,000 ML 42 ML IV (12:08)
[2018-08-20] MEDS: CEFAZOLIN 2 GM/100 ML FROZ.PIGGY IV (13:25)
--- NOTE | 2018-08-20 13:34 | PM.PREOP ---
Pre-operative Note Interval Note Pre-op Check: Yes History & Physical Reviewed by Physician Changes: No
--- NOTE | 2018-08-20 13:52 | SUR.OPER ---
Supine on padded OR bed, head on pillow, arms secured on padded arm boards at <90 degrees abduction, legs uncrossed, safety belt at thigh, tape over blanket over lower legs.
[2018-08-20] MEDS: LIDOCAINE 1% W/EPI INJ 20 ML INJ (14:03)
[2018-08-20] MEDS: BUPIVACAINE 0.5% (PF) VIAL 30 ML INJ (14:04)
--- NOTE | 2018-08-20 14:30 | SUR.PHASEI ---
Brief shivering initially treated with warm blankets.
[2018-08-20] MEDS: MEPERIDINE 50 MG/ML 25 MG IV ×2 (14:38→14:47)
--- NOTE | 2018-08-20 14:42 | SUR.PHASEI ---
Demerol given for pain due to some earler shivering. Pain went from none to six quickly.
--- NOTE | 2018-08-20 14:42 | PM.OP.1 ---
Operative Date/Time/Diagnoses Date of procedure: 08/20/18 Time of procedure: 14:42 Pre-op diagnosis: Umbilical Hernia - painful Post-op diagnosis: same Procedure & Clinicians Procedure: Umbilical Hernia Repair Same procedure as scheduled: Yes Indications: Painful umbilical hernia Surgeon: Brianna Larson Anesthesia Type: General (Kotlarczyk) Operative Notes Findings: 1.5 cm umbilical defect Minimal rectus diastasis Closure Type: primary Specimen(s): none sent Implants & Drains: None Estimated Blood Loss (mL): 5 Procedure in detail: After obtaining informed consent, the patient was brought to the operating room and placed in the supine position on the operating table. Following successful induction of general endotracheal anesthesia, appropriate padding of all bony prominences, and placement of appropriate monitors, the abdomen was prepped and draped in the standard surgical fashion. A timeout was held per SCOAP protocol. We began by infiltrating a mixture of local anesthetics directly over the hernia defect at the umbilicus and in the fascia around the defect. This was done to create a field block. An incision was then created directly over the hernia defect and the palpable sac. This was carried carefully down through the skin and subcutaneous tissue until the sac was easily visible and palpable. The edges of the hernia were carefully defined. It was determined to be approximately1.5 cm in greatest dimension. The contents of the hernia sac consisted of peritoneum and preperitoneal fat. The internal abdominal wall was palpated and no other defects were identified. The rectus muscles were not widely spaced-that is the patient does not have significant diastasis. We elected to repair the hernia defect directly with 0 Prolene suture. 3 interrupted sutures were placed to approximate the defect. The wound was checked for hemostasis and irrigated with warm saline solution. When we were satisfied that all was clean and dry, the incision was closed in 2 layers with Vicryl and Monocryl suture. All sponge, needle, and instrument counts were correct at the conclusion of the case. The patient was allowed to awaken from anesthesia without difficulty and taken to the post-anesthesia care unit in good condition. Complications: none Condition: stable Disposition: PACU Plan for aftercare: 1. Discharge to home 2. Follow up with me in 2 weeks in my office
--- NOTE | 2018-08-20 14:51 | SUR.PHASEI ---
Becoming more somnolent after two doses of Demerol.
--- NOTE | 2018-08-20 14:51 | SUR.PHASEI ---
Abdominal binder applied.
[2018-08-20] MEDS: OXYCODONE/ACETAMINOPHEN 5/325 TABLET 1 TAB PO (15:38)
== END 2018-08-20 15:55 | disposition home or self-care (01) ==
PROVIDERS: PCP Family Medicine; Visit Provider Surgery
PROC: (CPT 49585; principal; 2018-08-20 12:45)
DX: K42.9 Umbilical hernia without obstruction or gangrene (principal); F41.9 Anxiety disorder, unspecified
CPT/HCPCS: 49585; J0690; J1100; J2175; J2250; J2405; J2704; J3010

== ENCOUNTER 2018-10-08 13:05 | Emergency (ER) | payer OTHER, SELFPAY ==
[2018-10-08 13:26] VITALS: BP 112/78; PULSE 82; RESP 20; TEMP 36; O2SAT 100; BMI 21.7
--- NOTE | 2018-10-08 13:30 | PC.NURSE ---
Offered pt zofran,motrin and tylenol at triage. Pt stated she was not that nauseated. pt refused tylenol or motrin
[2018-10-08] MEDS: KETOROLAC 60 MG/2 ML VIAL 30 MG IV (15:09)
[2018-10-08] MEDS: SODIUM CHLORIDE 0.9% 1,000 ML 1000 ML IV (15:09)
[2018-10-08] MEDS: ONDANSETRON 4 MG/2 ML INJ IV (15:09)
[2018-10-08 15:24] LABS: RBC Urine 10-30/HPF (0-5/HPF); Squamous Epithelial Cell Urine 1-5 /HPF; WBC Urine 10-30/HPF (0-5/HPF)
[2018-10-08 15:25] LABS: Bacteria Urine Many (>30); Culture Indicated Urine Specimen Cultured; Mucus Urine 1+ (Negative)
--- NOTE | 2018-10-08 15:55 | DI.CT.S_ITS ---
PROCEDURE: CT KIDNEY URETER BLADDER (KUB) INDICATIONS: recurrent stones/pain TECHNIQUE: Noncontrast 5 mm thick sections acquired from the diaphragms to the symphysis. 5 mm thick coronal and sagittal reformats were then performed. For radiation dose reduction, the following was used: automated exposure control, adjustment of mA and/or kV according to patient size. COMPARISON: [facility], CT, CT KIDNEY URETER BLADDER (KUB), 07/26/2018, 11:25. FINDINGS: Image quality: Excellent. Lung bases: Lung bases are clear. Heart size is normal. Urinary system: Both kidneys are normal in size. Previously noted 3 mm nonobstructing stone in right kidney is not seen on the current study. One to 2 mm nonobstructing left lower pole renal calculi are seen. There is prominence of right renal collecting system the right proximal to MID ureter. A 3 mm calcification is noted in distal right ureter consistent with distal right ureteral stone. No perinephric fat stranding or fluid. No left-sided hydronephrosis. Left ureter appears non-dilated its expected course Bladder wall thickness is normal; no calcified bladder stones. Other solid organs: Liver is normal in size. Gallbladder is within normal limits. Pancreas is normal in contours. Spleen is normal in size. No adrenal nodules. Peritoneum and bowel: Unenhanced bowel loops demonstrate normal wall thickness and caliber. No free fluid or air. Nodes and vessels: No retroperitoneal or mesenteric adenopathy by size criteria. Aorta and inferior vena cava are normal in caliber. Abdominal wall: No ventral hernias. Pelvis: No free pelvic fluid. No inguinal hernias or adenopathy. No gross abnormality is seen in uterus and bilateral adnexa. Bones: No suspicious bony lesions. No vertebral body compression fractures. IMPRESSION: 1. 3 mm right distal ureteral stone with [id number] right-sided hydronephrosis and hydroureter. Tiny nonobstructing left renal calculi. No left-sided hydronephrosis. Normal appearing left ureter and urinary bladder. 2. No bowel obstruction. No free fluid or free air. Dictated by: Ludwig No M.D. on 10/08/2018 at 16:19 Approved by: Ludwig No M.D. on 10/08/2018 at 16:23
--- NOTE | 2018-10-08 16:10 | ED_ITS ---
HPI - Female Genitourinary <Yanely Wilson PA-C - Last Filed: 10/08/18 22:18> General Chief complaint: Urogenital-Female Stated complaint: kidney stone Time Seen by Provider: 10/08/18 14:50 Source: patient Mode of arrival: ambulatory Limitations: no limitations History of Present Illness HPI Narrative: This 33-year-old female has a history of kidney stones since age 18. She needed lithotripsy for this in the past, though in the interim has had smaller stones with no treatment needed. Two months ago, she states she was here for repair of an umbilical hernia and at that time was found to have bilateral kidney stones. She states that she developed recurrent pain and nausea today (vomited 9 times). She has had burning pain before and after urination but not with urination, no hematuria. She has not had new fever. She states the pain is in her right flank and can feel it radiating into the side. This feels like her previous kidney stones. She states that pain and nausea are significantly better after medications. She has had 3 or 4 urinary infection recently as well and wonders if she needs to have a urologist due to these issues. She has a nearly 4-month-old and is breast-feeding, but states she has a large supply of stored breast milk and okay to treat pain and nausea as needed. She is wondering whether the stones seen a couple of months ago present whether she could need lithotripsy again (she has not had imaging for the smaller stones), and thinks perhaps she should have imaging today. Related Data Home Medications Medication Instructions Recorded Confirmed vit-iron fum-folic ac 1 cap PO QDAY #0 04/08/17 09/07/18 [Mynatal] Previous Rx's Medication Instructions Recorded ibuprofen 600 mg PO Q6HR PRN #30 tab 06/17/18 fluconazole [Diflucan] 100 mg PO DAILY #2 tab 07/26/18 oxycodone-acetaminophen [Percocet] 1 tab PO Q4-6H PRN #7 tab 07/26/18 cephalexin 500 mg capsule 500 mg PO BID #14 cap 07/31/18 oxycodone-acetaminophen [Percocet] 1 tab PO Q3H PRN #20 tab 08/20/18 ondansetron 4 mg PO Q8H PRN #7 tab 10/08/18 oxycodone-acetaminophen [Percocet] 1 tab PO Q4-6H PRN #12 tab 10/08/18 sulfamethoxazole-trimethoprim 1 tab PO BID 5 Days #10 tab 10/08/18 [Bactrim DS] tamsulosin [Flomax] 0.4 mg PO DAILY #5 cap 10/08/18 meloxicam 7.5 mg PO DAILY PRN #20 tab 10/09/18 metoclopramide HCl [Reglan] 5 mg PO Q6H PRN #20 tab 10/09/18 ondansetron 4 mg PO Q6-8H PRN #10 tab 10/09/18 Allergies Allergy/AdvReac Type Severity Reaction Status Date / Time No Known Drug Allergies Allergy Verified 10/08/18 22:31 Review of Systems <Yanely Wilson PA-C - Last Filed: 10/08/18 22:18> Review of Systems ROS Unobtainable: All systems reviewed & are unremarkable except as noted in HPI and below PFSH <Yanely Wilson PA-C - Last Filed: 10/08/18 22:18> Medical History Anxiety (Chronic) Chronic cough (Chronic) Heavy menstrual period (Chronic) Kidney stones (Chronic ~2002) Painful menstrual periods (Chronic) Chickenpox (Resolved ~1991) Surgical History Status post wrist surgery (Resolved ~2009) Anesthesia (Inactive) History of lithotripsy (~2002) Family History Father Age: 66 Type 2 diabetes mellitus High cholesterol Mother Age: 61 High cholesterol Grandfather No problems noted. Grandmother No problems noted. Family/Other No problems noted. Social History marital status: number of children: 2 household members: spouse and children occupational status: unemployed Smoking Status: Never smoker alcohol intake: current substance use type: does not use Family History Father Age: 66 Type 2 diabetes mellitus High cholesterol Mother Age: 61 High cholesterol Grandfather No problems noted. Grandmother No problems noted. Family/Other No problems noted. Social History marital status: number of children: 2 household members: spouse and children occupational status: unemployed Smoking Status: Never smoker alcohol intake: current substance use type: does not use Exam <Yanely Wilson PA-C - Last Filed: 10/08/18 22:18> Narrative Exam Narrative: GENERAL APPEARANCE: Patient sitting comfortably, in no distress. LUNGS: Clear to auscultation bilaterally. HEART: Rate and rhythm regular without murmur, normal S1 and S2, no S3 or S4. ABDOMEN: Soft, ND, +BS x 4 quadrants. Mild tenderness over the right flank most laterally, no R. UQ or LQ tenderness. Mild suprapubic tenderness. No guarding or rebound EXTREMITIES: No cyanosis or edema, no calf tenderness Initial Vital Signs Initial Vital Signs: Vital Signs Temperature 96.8 F L 10/08/18 13:26 Pulse Rate 82 10/08/18 13:26 Respiratory Rate 20 10/08/18 13:26 Blood Pressure 112/78 10/08/18 13:26 Pulse Oximetry 100 10/08/18 13:26 <Julio Nuñez DO - Last Filed: 10/10/18 19:33> Initial Vital Signs Initial Vital Signs: Vital Signs Temperature 96.8 F L 10/08/18 13:26 Pulse Rate 82 10/08/18 13:26 Respiratory Rate 20 10/08/18 13:26 Blood Pressure 112/78 10/08/18 13:26 Pulse Oximetry 100 10/08/18 13:26 Course <Yanely Wilson PA-C - Last Filed: 10/08/18 22:18> Orders Ordered: Discontinued Medications Sodium Chloride (Normal Saline 0.9%) 1,000 mls @ 1,000 mls/hr IV BOLUS ONE Stop: 10/08/18 15:59 Last Infusion: 10/08/18 17:32 Dose: 0 mls/hr Admin: 10/08/18 15:09 Dose: 1,000 mls/hr Ketorolac Tromethamine (Toradol) 30 mg IV NOW ONE Stop: 10/08/18 15:01 Last Admin: 10/08/18 15:09 Dose: 30 mg Ondansetron HCl (Zofran) 4 mg IV NOW ONE Stop: 10/08/18 15:01 Last Admin: 10/08/18 15:09 Dose: 4 mg Consultations Additional Consultation(s): Patient was feeling significantly improved upon departure and will return if any acutely worsening symptoms prior to seeing her PCP. Vital Signs - 8 hr 10/08/18 17:15 Pulse Rate [Orthostatic Lying] 81 Pulse Rate [Orthostatic Sitting] 66 Pulse Rate [Orthostatic Standing] 92 H Blood Pressure [Orthostatic Lying] 93/51 L Blood Pressure [Orthostatic Sitting] 95/51 L Blood Pressure [Orthostatic Standing] 91/62 <Julio Nuñez DO - Last Filed: 10/10/18 19:33> Orders Ordered: Discontinued Medications Sodium Chloride (Normal Saline 0.9%) 1,000 mls @ 1,000 mls/hr IV BOLUS ONE Stop: 10/08/18 15:59 Last Infusion: 10/08/18 17:32 Dose: 0 mls/hr Admin: 10/08/18 15:09 Dose: 1,000 mls/hr Ketorolac Tromethamine (Toradol) 30 mg IV NOW ONE Stop: 10/08/18 15:01 Last Admin: 10/08/18 15:09 Dose: 30 mg Ondansetron HCl (Zofran) 4 mg IV NOW ONE Stop: 10/08/18 15:01 Last Admin: 10/08/18 15:09 Dose: 4 mg Vital Signs - 8 hr 10/08/18 17:15 Pulse Rate [Orthostatic Lying] 81 Pulse Rate [Orthostatic Sitting] 66 Pulse Rate [Orthostatic Standing] 92 H Blood Pressure [Orthostatic Lying] 93/51 L Blood Pressure [Orthostatic Sitting] 95/51 L Blood Pressure [Orthostatic Standing] 91/62 MDM - Female Genitourinary <Yanely Wilson PA-C - Last Filed: 10/08/18 22:18> Lab Data Lab Results 10/08/18 Range/Units 14:50 Urine RBC 10-30/hpf H (0-5/HPF) Urine WBC 10-30/hpf H (0-5/HPF) Ur Squamous Epith Cells 1-5 /hpf Urine Bacteria Many (>30) H (None) Urine Mucus 1+ H (Negative) Ur Culture Indicated? Specimen cultured Point of Care Testing Test Results Negative Urine Dip Bedside Urine Glucose Negative Bedside Urine Bilirubin - Negative Bedside Urine Ketone +++ 80 Urine Specific [place] 1.030 Bedside Urine Occult Blood ++ Bedside Urine pH 5.5 Bedside Urine Protein - Negative Bedside Urine Urobilinogen - Negative Bedside Urine Nitrite - Negative Bedside Urine Leukocytes +/- [address] scan - abdomen: Radiologist's impression: [address] [address] [address] Scan Report Signed Patient: Shira Anthony MMR#: [id number] : 1985Acct:[id number] Age/Sex: 33 / FDate of Service: 10/08/18 Loc: ED Accession Number: [id number] Procedure: CT kidney ureter bladder (KUB) Ordering Provider: Yanely Wilson P.A-C PROCEDURE: CT KIDNEY URETER BLADDER (KUB) INDICATIONS: recurrent stones/pain TECHNIQUE: Noncontrast 5 mm thick sections acquired from the diaphragms to the symphysis. 5 mm thick coronal and sagittal reformats were then performed. For radiation dose reduction, the following was used: automated exposure control, adjustment of mA and/or kV according to patient size. COMPARISON: [facility], CT, CT KIDNEY URETER BLADDER (KUB), 07/26/2018, 11:25. FINDINGS: Image quality: Excellent. Lung bases: Lung bases are clear. Heart size is normal. Urinary system: Both kidneys are normal in size. Previously noted 3 mm nonobstructing stone in right kidney is not seen on the current study. One to 2 mm nonobstructing left lower pole renal calculi are seen. There is prominence of right renal collecting system the right proximal to MID ureter. A 3 mm calcification is noted in distal right ureter consistent with distal right ureteral stone. No perinephric fat stranding or fluid. No left-sided hydronephrosis. Left ureter appears non-dilated its expected course Bladder wall thickness is normal; no calcified bladder stones. Other solid organs: Liver is normal in size. Gallbladder is within normal limits. Pancreas is normal in contours. Spleen is normal in size. No adrenal nodules. Peritoneum and bowel: Unenhanced bowel loops demonstrate normal wall thickness and caliber. No free fluid or air. Nodes and vessels: No retroperitoneal or mesenteric adenopathy by size criteria. Aorta and inferior vena cava are normal in caliber. Abdominal wall: No ventral hernias. Pelvis: No free pelvic fluid. No inguinal hernias or adenopathy. No gross abnormality is seen in uterus and bilateral adnexa. Bones: No suspicious bony lesions. No vertebral body compression fractures. IMPRESSION: 1. 3 mm right distal ureteral stone with [id number] right-sided hydronephrosis and hydroureter. Tiny nonobstructing left renal calculi. No left-sided hydronephro sis. Normal appearing left ureter and urinary bladder. 2. No bowel obstruction. No free fluid or free air. Dictated by: Ludwig No M.D. on 10/08/2018 at 16:19 Approved by: Ludwig No M.D. on 10/08/2018 at 16:23 <Julio Nuñez DO - Last Filed: 10/10/18 19:33> Lab Data Lab Results 10/08/18 Range/Units 14:50 Urine RBC 10-30/hpf H (0-5/HPF) Urine WBC 10-30/hpf H (0-5/HPF) Ur Squamous Epith Cells 1-5 /hpf Urine Bacteria Many (>30) H (None) Urine Mucus 1+ H (Negative) Ur Culture Indicated? Specimen cultured Point of Care Testing Test Results Negative Urine Dip Bedside Urine Glucose Negative Bedside Urine Bilirubin - Negative Bedside Urine Ketone +++ 80 Urine Specific [place] 1.030 Bedside Urine Occult Blood ++ Bedside Urine pH 5.5 Bedside Urine Protein - Negative Bedside Urine Urobilinogen - Negative Bedside Urine Nitrite - Negative Bedside Urine Leukocytes +/- 15 Esterase Discharge Plan Departure Patient Disposition: Home Clinical Impression: Kidney stone on right side UTI (urinary tract infection) Qualifiers: Urinary tract infection type: site unspecified Hematuria presence: without hematuria Qualified Code(s): N39.0 - Urinary tract infection, site not specified Discharge Date/Time: 10/08/18 17:15 Interventions: ED Discharge Assessment Last Done: 10/08/18 17:15 Instructions: DI for Kidney Stones, DI for Urinary Tract Infection (UTI) Activity Restrictions/Additional Instructions: Please return as we talked about if you have any acutely worsening symptoms, such as protracted vomiting again, or new symptoms such as high fever. Please start all of the medicines tonight including the tamsulosin, which may help the stone pass. Take [id number] ibuprofen 800 mg every 8 hr, and you can add the oxycodone/acetaminophen as needed. Hydrate well. Take the antinausea medicine as needed. I have also prescribed an antibiotic called Bactrim to take twice daily for infection. This is considered safe to use with . Please take all of these medicines until you see your PCP in the next few days, and then you can decide whether to continue them. Please do not breastfeed for the next few days until you follow up and determine which medicines your going to continue taking. Given the history that you told me about, please discuss a referral to a local urologist with your PCP. Drs. Rowley and Joy are over in [facility] and I would recommend them Prescriptions: New sulfamethoxazole-trimethoprim [Bactrim DS] 800-160 mg tablet 1 tab PO BID 5 Days Qty: 10 RF: 0 oxycodone-acetaminophen [Percocet] 5-325 mg tablet 1 tab PO Q4-6H PRN (Reason: acute kidney stone pain) Qty: 12 RF: 0 tamsulosin [Flomax] 0.4 mg capsule 0.4 mg PO DAILY Qty: 5 RF: 0 ondansetron 4 mg tablet,disintegrating 4 mg PO Q8H PRN (Reason: nausea and vomiting) Qty: 7 RF: 0 No Action vit-iron fum-folic ac [Mynatal] 1 EACH capsule 1 cap PO QDAY Qty: 0 RF: 0 cephalexin 500 mg capsule 500 mg PO BID Qty: 14 RF: 0 meloxicam 7.5 mg tablet 7.5 mg PO DAILY PRN (Reason: pain) Qty: 20 RF: 0 metoclopramide HCl [Reglan] 5 mg tablet 5 mg PO Q6H PRN (Reason: nausea and vomiting) Qty: 20 RF: 0 ondansetron 4 mg tablet,disintegrating 4 mg PO Q6-8H PRN (Reason: nausea and vomiting) Qty: 10 RF: 0 ibuprofen 600 mg Tablet 600 mg PO Q6HR PRN (Reason: Pain, Mild (1-3)) Qty: 30 RF: 0 fluconazole [Diflucan] 100 mg tablet 100 mg PO DAILY Qty: 2 RF: 0 oxycodone-acetaminophen [Percocet] 5-325 mg tablet 1 tab PO Q4-6H PRN (Reason: pain) Qty: 7 RF: 0 oxycodone-acetaminophen [Percocet] 5-325 mg tablet 1 tab PO Q3H PRN (Reason: pain) Qty: 20 RF: 0 Referrals: Lexie Quinn MD [Primary Care Provider] - <Julio Nuñez DO - Last Filed: 10/10/18 19:33> Cosign ED Attending Sudarshan Attestation: I was immediately available in the department for consultation. Documentation has been reviewed. I agree with assessment and plan.
[2018-10-08 17:15] VITALS: BP 91/62; BP 93/51; BP 95/51; PULSE 66; PULSE 81; PULSE 92
--- NOTE | 2018-10-08 17:52 | PC.NURSE ---
Pt denies being dizzy,Yanely Miles aware of results,ok with her to D/c to home
== END 2018-10-08 17:15 | disposition home or self-care (01) ==
PROVIDERS: Emergency Provider Internal Medicine; PCP Family Medicine
DX: N20.0 Calculus of kidney (principal)
CPT/HCPCS: 36591; 74176; 81003; 81015; 81025; 87077; 87086; 87186; 99283; J1885; J2405

== ENCOUNTER 2018-10-08 21:58 | Emergency (ER) | payer OTHER, SELFPAY ==
[2018-10-08 22:21] VITALS: BP 114/73; PULSE 96; RESP 22; TEMP 37.2; O2SAT 98
[2018-10-08] MEDS: ONDANSETRON 4 MG ODT SL (23:03)
--- NOTE | 2018-10-08 23:16 | PC.NURSE ---
PT states N/V, burning with urination, right flank pain and hx of kidney stones since age 18 with hx of lithotripsy. Seen here today earlier for same still nauseated, did not fill zofran perscription given earlier. Related Data
[2018-10-08] MEDS: HYDROMORPHONE 2 MG INJ 1 MG SUBCUT (23:40)
[2018-10-09] MEDS: ONDANSETRON 4 MG ODT PREPACK 1 BOTTLE MISC (00:52)
[2018-10-09 00:53] VITALS: BP 108/62; BP 96/56; BP 97/58; PULSE 105; PULSE 106; PULSE 111
--- NOTE | 2018-10-09 00:53 | PC.NURSE ---
Pt feeling a little dizzy with standing,pt also received dilaudid Subq. Dr Garcia aware of vital signs,ok with her to d/c to home.
[2018-10-09] MEDS: METOCLOPRAMIDE HCL 10 MG TABLET PO (00:54)
[2018-10-09 01:10] VITALS: BP 108/62; PULSE 111; TEMP 36.9; O2SAT 98
--- NOTE | 2018-10-09 05:27 | ED_ITS ---
HPI - Female Genitourinary General Chief complaint: Urogenital-Female Stated complaint: Here earlier, kidney stone Time Seen by Provider: 10/08/18 22:53 Source: patient Mode of arrival: ambulatory Limitations: no limitations History of Present Illness HPI Narrative: patient is a 33-year-old female who presents with right flank pain. She was seen evaluated here just a few hours ago diagnosed with a 3 mm kidney stone. she was given Percocet, Flomax, Bactrim and Zofran. She states that her pain has gotten significantly worse she has been vomiting. Last time the stone on was imbedded in she needed lithotripsy. She thinks she might need that now. However her pain is been going on only for 1 day. She received IV fluids previously. Female Urogenital Radiation: R Flank Severity: severe Related Data Home Medications Medication Instructions Recorded Confirmed vit-iron fum-folic ac 1 cap PO QDAY #0 04/08/17 09/07/18 [Mynatal] Previous Rx's Medication Instructions Recorded ibuprofen 600 mg PO Q6HR PRN #30 tab 06/17/18 fluconazole [Diflucan] 100 mg PO DAILY #2 tab 07/26/18 oxycodone-acetaminophen [Percocet] 1 tab PO Q4-6H PRN #7 tab 07/26/18 cephalexin 500 mg capsule 500 mg PO BID #14 cap 07/31/18 oxycodone-acetaminophen [Percocet] 1 tab PO Q3H PRN #20 tab 08/20/18 ondansetron 4 mg PO Q8H PRN #7 tab 10/08/18 oxycodone-acetaminophen [Percocet] 1 tab PO Q4-6H PRN #12 tab 10/08/18 sulfamethoxazole-trimethoprim 1 tab PO BID 5 Days #10 tab 10/08/18 [Bactrim DS] tamsulosin [Flomax] 0.4 mg PO DAILY #5 cap 10/08/18 meloxicam 7.5 mg PO DAILY PRN #20 tab 10/09/18 metoclopramide HCl [Reglan] 5 mg PO Q6H PRN #20 tab 10/09/18 ondansetron 4 mg PO Q6-8H PRN #10 tab 10/09/18 Allergies Allergy/AdvReac Type Severity Reaction Status Date / Time No Known Drug Allergies Allergy Verified 10/08/18 22:31 Review of Systems Review of Systems GENERAL: Denies chills, fatigue, malaise, fever, sweats, travel HEENT: Denies sinus pain, ear pain, sore throat, difficulty swallowing, neck pain RESPIRATORY: Denies dyspnea, cough, wheezing, hemoptysis, sputum. CARDIOVASCULAR: Denies chest pain, palpitations, orthopnea, edema GASTROINTESTINAL: Denies nausea, vomiting, abdominal pain, diarrhea, constipation, melena. : See HPI MUSCULOSKELETAL: Denies weakness, joint pain, or bony pain SKIN: No rash, no erythema, no pruritus NEUROLOGIC: Denies weakness, dizziness, headache, numbness, change in speech, confusion PSYCHIATRIC: No concerning psychosocial issues. 12 point review of systems is negative except for those stated above and HPI [facility] Medical History Anxiety (Chronic) Chronic cough (Chronic) Heavy menstrual period (Chronic) Kidney stones (Chronic ~2002) Painful menstrual periods (Chronic) Chickenpox (Resolved ~1991) Surgical History Status post wrist surgery (Resolved ~2009) Anesthesia (Inactive) History of lithotripsy (~2002) Family History Father Age: 66 Type 2 diabetes mellitus High cholesterol Mother Age: 61 High cholesterol Grandfather No problems noted. Grandmother No problems noted. Family/Other No problems noted. Social History marital status: number of children: 2 household members: spouse and children occupational status: unemployed Smoking Status: Never smoker alcohol intake: current substance use type: does not use Family History Father Age: 66 Type 2 diabetes mellitus High cholesterol Mother Age: 61 High cholesterol Grandfather No problems noted. Grandmother No problems noted. Family/Other No problems noted. Social History marital status: number of children: 2 household members: spouse and children occupational status: unemployed Smoking Status: Never smoker alcohol intake: current substance use type: does not use Exam Initial Vital Signs Initial Vital Signs: Vital Signs Temperature 99.0 F 10/08/18 22:21 Pulse Rate 96 H 10/08/18 22:21 Respiratory Rate 22 10/08/18 22:21 Blood Pressure 114/73 10/08/18 22:21 Pulse Oximetry 98 10/08/18 22:21 GENERAL: young female appears in pain and anxious. Alert and oriented. HEENT: Head atraumatic,EOMI, neck is supple CARDIOVASCULAR: Regular rate and rhythm without murmurs, rubs or gallops. RESPIRATORY: Breath sounds equal bilaterally, no wheezes rales or rhonchi. ABDOMEN: Soft, nontender. Normoactive bowel sounds all 4 quadrants. No guarding or rebound. : mild right CVA tenderness EXTREMITIES: Normal range of motion, no clubbing or edema. Neurovascularly intact NEUROLOGICAL: Alert and oriented x4. SKIN: Warm, dry, no laceration, no petechiae, no rashes or lesions. Course Orders Ordered: Discontinued Medications Hydromorphone HCl (Dilaudid) 1 mg SUBCUT Q4H PRN PRN Reason: Pain, Severe (7-10) Last Admin: 10/08/18 23:40 Dose: 1 mg Metoclopramide HCl (Reglan) 5 mg PO NOW ONE Stop: 10/09/18 00:30 Last Admin: 10/09/18 00:54 Dose: Not Given Metoclopramide HCl (Reglan) 10 mg PO NOW ONE Stop: 10/09/18 00:54 Last Admin: 10/09/18 00:54 Dose: 10 mg Ondansetron HCl (Zofran Odt) 4 mg SL NOW ONE Stop: 10/08/18 22:54 Last Admin: 10/08/18 23:03 Dose: 4 mg Ondansetron HCl (Zofran Odt Prepack) 1 bottle MISC SEEINSTR ONE Stop: 10/09/18 00:30 Last Admin: 10/09/18 00:52 Dose: 1 bottle Vital Signs - 8 hr 10/08/18 22:21 10/09/18 00:53 10/09/18 01:10 Temperature 99.0 F 98.4 F Pulse Rate 96 H 111 H Pulse Rate [Orthostatic Lying] 111 H Pulse Rate [Orthostatic Sitting] 105 H Pulse Rate [Orthostatic Standing] 106 H Respiratory Rate 22 Blood Pressure 114/73 108/62 Blood Pressure [Orthostatic Lying] 108/62 Blood Pressure [Orthostatic Sitting] 97/58 L Blood Pressure [Orthostatic Standing] 96/56 L Pulse Oximetry 98 98 MDM - Female Genitourinary MDM Narrative Medical decision making narrative: Patient continues to have nausea despite Zofran she is given Dilaudid for pain. pain is much better controlled. She is taking in oral fluids. She would prefer to have something other than Zofran. She is . She is given Reglan and prescriptions for both. At this time I do not think emergent consult with Urology is indicated. Recommend she follow up as an outpatient. If pain continues or worsens then she needs to return to ED. Discharge Plan Departure Patient Disposition: Home Clinical Impression: Kidney stones Discharge Date/Time: 10/09/18 01:13 Interventions: ED Discharge Assessment Last Done: 10/09/18 01:10 Instructions: DI for Kidney Stones Activity Restrictions/Additional Instructions: *Increase fluid intake *Call urology office tomorrow, to schedule follow-up appointment. He may also need to call your PCP to help give you a referral to Urology. -If you should have fever, or pain is uncontrolled with medication at home or any other concerning symptoms return to ER for further evaluation MEDICATIONS--> FAXED TO [facility] Take Meloxicam Once daily do not combine with other NSAIDS 9 ibuprofen, Motrin, Aleve, as Advil, naproxen etc) Take Percocet 1-2 tablets every 6 hr if needed for severe pain Take Zofran every 4-6 hours if needed for nausea OR Reglan 5 mg every 6 hr if needed for nausea or vomiting CONTROLLED SUBSTANCE DISCHARGE (Narcotoic/benzodiazepine) 1. You have been prescribed narcotic medications, it does have acetaminophen/Tylenol/paracetamol in it so do not take extra Tylenol or Tylenol containing products 2. Please understand that we cannot provide further refills of narcotics, benzodiazepines or controlled substances through the ED and her pain management will need to be through your provider. 3. While on these medications you cannot drive or operate heavy machinery. 4. You cannot sign legal documents or perform any duties such as this. 5. As long as you're taking opiate pain medications he should also be taking a stool softener such as Colace, Dulcolax, MiraLAX or prune juice, to help avoid constipation. Prescriptions: New meloxicam 7.5 mg tablet 7.5 mg PO DAILY PRN (Reason: pain) Qty: 20 RF: 0 metoclopramide HCl [Reglan] 5 mg tablet 5 mg PO Q6H PRN (Reason: nausea and vomiting) Qty: 20 RF: 0 ondansetron 4 mg tablet,disintegrating 4 mg PO Q6-8H PRN (Reason: nausea and vomiting) Qty: 10 RF: 0 No Action vit-iron fum-folic ac [Mynatal] 1 EACH capsule 1 cap PO QDAY Qty: 0 RF: 0 cephalexin 500 mg capsule 500 mg PO BID Qty: 14 RF: 0 sulfamethoxazole-trimethoprim [Bactrim DS] 800-160 mg tablet 1 tab PO BID 5 Days Qty: 10 RF: 0 oxycodone-acetaminophen [Percocet] 5-325 mg tablet 1 tab PO Q4-6H PRN (Reason: acute kidney stone pain) Qty: 12 RF: 0 tamsulosin [Flomax] 0.4 mg capsule 0.4 mg PO DAILY Qty: 5 RF: 0 ondansetron 4 mg tablet,disintegrating 4 mg PO Q8H PRN (Reason: nausea and vomiting) Qty: 7 RF: 0 ibuprofen 600 mg Tablet 600 mg PO Q6HR PRN (Reason: Pain, Mild (1-3)) Qty: 30 RF: 0 fluconazole [Diflucan] 100 mg tablet 100 mg PO DAILY Qty: 2 RF: 0 oxycodone-acetaminophen [Percocet] 5-325 mg tablet 1 tab PO Q4-6H PRN (Reason: pain) Qty: 7 RF: 0 oxycodone-acetaminophen [Percocet] 5-325 mg tablet 1 tab PO Q3H PRN (Reason: pain) Qty: 20 RF: 0 Referrals: Deidra Hamilton MD [Non-Staff] - Kadeem Rowley MD [Non-Staff] - Lexie Quinn MD [Primary Care Provider] -
== END 2018-10-09 01:13 | disposition home or self-care (01) ==
PROVIDERS: Emergency Provider Emergency Medicine; PCP Family Medicine
DX: N20.0 Calculus of kidney (principal); R11.0 Nausea
CPT/HCPCS: 36591; 74176; 81003; 81015; 81025; 87077; 87086; 87186; 99283; J1170; J1885; J2405

== ENCOUNTER → 2018-10-12 15:15 | Outpatient (CLI) | payer OTHER, SELFPAY ==
--- NOTE | 2018-10-12 | DI.RAD.S_ITS ---
PROCEDURE: XR KUB INDICATIONS: CALCULUS OF KIDNEY TECHNIQUE: One view of the abdomen acquired. COMPARISON: None. FINDINGS: Surgical changes and devices: None. Bowel: Bowel gas pattern is normal. Soft tissues: No suspicious abdominal calcifications. Visualized solid organ contours appear normal in size. Tiny calcifications are seen in left lower pelvis likely represent phleboliths. Bones: No suspicious bony lesions. IMPRESSION: No calcified renal stone is seen. Likely phleboliths seen in the left lower pelvis. Dictated by: Ludwig No M.D. on 10/12/2018 at 16:12 Approved by: Ludwig No M.D. on 10/12/2018 at 16:17
== END ==
PROVIDERS: PCP Family Medicine; Visit Provider Specialist
DX: N20.0 Calculus of kidney (principal)
CPT/HCPCS: 74018

== ENCOUNTER → 2018-10-22 15:30 | Outpatient (CLI) | payer OTHER, SELFPAY ==
[2018-10-22 15:38] LABS: Bacteria Urine None Seen; RBC Urine None Seen (0-5/HPF); WBC Urine None Seen (0-5/HPF)
[2018-10-22 15:50] LABS: Appearance Urine UA CLEAR; Bilirubin Urine UA NEGATIVE (NEGATIVE); Color Urine UA YELLOW; Glucose Urine UA NEGATIVE (Negative); Ketones Urine UA NEGATIVE (NEGATIVE); Leukocyte Esterase Urine UA NEGATIVE (NEGATIVE); Nitrite Urine UA NEGATIVE (Negative); Occult Blood Urine UA NEGATIVE (Negative); Protein Urine UA NEGATIVE (Negative); Specific Gravity Urine UA <=1.005 (1.000-1.035); Urobilinogen Urine UA 0.2 E.U./dL (0.2)
[2018-10-22 16:09] LABS: Culture Indicated Urine Cult Not Indicated; Squamous Epithelial Cell Urine 0-1 /HPF
== END ==
PROVIDERS: PCP Family Medicine; Visit Provider Specialist
DX: R30.0 Dysuria (principal)
CPT/HCPCS: 81001

== ENCOUNTER → 2018-11-20 15:45 | Outpatient (CLI) | payer OTHER, SELFPAY ==
[2018-11-20 16:55] LABS: Uric Acid 2.5 mg/dL (2.5-6.2)
[2018-11-20 19:02] LABS: Calcium 9.5 mg/dL (8.4-10.2)
== END ==
PROVIDERS: PCP Family Medicine; Visit Provider Specialist
DX: N20.0 Calculus of kidney (principal)
CPT/HCPCS: 36415; 82310; 84550

== ENCOUNTER → 2018-11-21 08:33 | Outpatient (CLI) | payer OTHER, SELFPAY ==
[2018-11-24 15:02] LABS: Parathyroid Hormone Int 49 pg/mL (14-64)
== END ==
PROVIDERS: PCP Family Medicine; Visit Provider Specialist
DX: N20.0 Calculus of kidney (principal)
CPT/HCPCS: 83970

== ENCOUNTER → 2018-11-25 16:25 | Outpatient (CLI) | payer OTHER, SELFPAY ==
--- NOTE | 2018-11-25 | DI.RAD.S_ITS ---
PROCEDURE: XR KUB INDICATIONS: KIDNEY STONES TECHNIQUE: One view of the abdomen acquired. COMPARISON: [facility], CT, CT KIDNEY URETER BLADDER (KUB), 10/08/2018, 15:52. [facility], CR, XR KUB, 10/12/2018, 15:19. FINDINGS: Surgical changes and devices: None. Bowel: Bowel gas pattern is normal. Soft tissues: Multiple punctate calculi project in the inferior pole of the left kidney. A distal right ureteral calculus seen on the comparison CT KUB is not well-visualized radiographically or absent. There are left sided pelvic phleboliths. Unchanged uspicious projecting in the region of the right kidney are probably costochondral in nature and unchanged Bones: No suspicious bony lesions. IMPRESSION: Punctate renal calculi project in the inferior pole of the left kidney, unchanged. No definite right-sided radiographically visible urolithiasis. Dictated by: Souleymane Trujillo M.D. on 11/25/2018 at 17:14 Approved by: Souleymane Trujillo M.D. on 11/25/2018 at 17:18
== END ==
PROVIDERS: PCP Family Medicine; Visit Provider Specialist
DX: N20.0 Calculus of kidney (principal)
CPT/HCPCS: 74018

== ENCOUNTER 2018-12-03 16:00 | Outpatient (RCR) | payer OTHER, SELFPAY ==
--- NOTE | 2018-09-10 13:51 | PT.OIE ---
Current Diagnoses Other specified disorders of muscle (09/09/18) Other specified diseases and conditions complicating , childbirth and the puerperium (09/09/18) Pelvic and perineal pain (09/09/18) Past Medical History (Last Reviewed 08/06/18 @ 17:21 by Brianna Larson MD) Anxiety (Chronic) Chronic cough (Chronic) Heavy menstrual period (Chronic) Kidney stones (Chronic ~2002) Painful menstrual periods (Chronic) Chickenpox (Resolved ~1991) Past Surgical History (Last Reviewed 08/06/18 @ 17:21 by Brianna Larson MD) Status post wrist surgery (Resolved ~2009) Anesthesia (Inactive) History of lithotripsy (~2002) Provider Visit Care Team Role Provider Type Lexie Quinn MD Attending Provider Physician Primary Care Provider Specialty: [facility] Address: [address] [place] [address] Email: [email or web address] Physical Therapy Initial Evaluation PT-OP-A Visit Information Start: 09/10/18 13:08 Freq: Status: Active Protocol: Document 09/09/18 13:11 [facility] (Rec: 09/10/18 13:51 [facility] [email or web address]) Out-Patient Physical Therapy Visit Information Visit Information Visit Type Initial Evaluation Visit Start Time 13:00 Visit Stop Time 13:45 Total Visit Minutes 45 Visit Number 1 Evaluation Information Evaluation Date 09/09/18 PT-OP-B Current Condition Start: 09/10/18 13:08 Freq: Status: Active Protocol: Document 09/09/18 13:11 [facility] (Rec: 09/10/18 13:51 [facility] [email or web address]) Current Condition History of Current Condition Onset Date 12 weeks ago with vaginal delivery Current Complaints c/o pelvic pressure, heaviness , pain, urethral irritation, pubic pain, weak History of Current Condition 33 year female 12 months with her second delivery. She notes she was in labor 22 hours but the pushing phase was extremely fast only lasting 5 minutes. At 2 weeks she began to feel that her insides were going to fall out and she wasn't able to do anything that required lifting. She did recently undergo a umbilical hernia surgery and this has not changed her pelvic pressure. Currently she describes continueing to feel the pelvic pressure, she feels as is she is sitting on something internal and has to stand with her legs crossed for support. Shira reprots she has been on 3 rounds of antibiotics for symptoms of a UTI and she will often feel a burning sensation when she nees to void. She has had a strong smelling urine along with a discharge. She also reports feeling a crushing sensation at her pubic bone. Her past medical history includes a previous vaginal delivery in 2014 with no problems following Treatment Goals Patient/Caregiver Goals [place] goals include decreasing her pain levels, decreasing the feeling that her internal organs are going to fall out and be able to increase her activity level Prior Functional Status Baseline Function- ADL's Independent Baseline Function- Mobility Independent Baseline Function- Recreation/Hobbies No restrictions Current Functional Impairments (Reported) Functional Limitations- Mobility/Gait limited in walking distance due to pain and instability Functional Limitations- Recreation/ limited in exercise due to Hobbies instability and pain, she has not been able to return to intercourse with her due to pain PT-OP-I Pelvic Floor Start: 09/10/18 13:08 Freq: Status: Active Protocol: Document 09/09/18 13:11 [facility] (Rec: 09/10/18 13:51 [facility] [id number]) Pelvic Floor Assessment Urine Pelvic Floor Surgery No Urinary Symptoms Pain Other Urinary Symptoms strong odor of urine when voiding, not always voiding completely, 3 UTI's since her delivery 12 weeks ago Pelvic Clock Pelvic Clock 12-3 Tenderness Pelvic Clock 3-6 Tenderness Pelvic Clock Other palpable swelling noted at the urethra and on either side of the urethra as well as in the suprapubic region internally small rectocele palpated in the posterior wall Prolapse Rectocele Grade 2 SEMG (uV) Baseline 1.5 10 Second Contraction 3.2 Recruitment Pattern Poor/Slow Relaxation Fair Holding Poor/Slow Stability of Hold Poor/Slow SEMG Stability of Rest Fair Contraction Ability Voluntary Contraction Weak Manual Muscle Testing Left 2 Manual Muscle Testing Right 2 Manual Muscle Testing Anterior 2 Manual Muscle Testing Posterior 3 Muscle Endurance (Seconds) 3 PT-OP-J Posture/Palpation/Skin Start: 09/10/18 13:08 Freq: Status: Active Protocol: Document 09/09/18 13:11 [facility] (Rec: 09/10/18 13:51 [facility] [email or web address]) Palpation Assessment Location Two Palpation Location Right innominant outflare Palpation Details outflare of the right innominant One Palpation Location pubic bone, anterior pelvic floor Palpation Findings Edema Tenderness Palpation Details There is a great deal of pain to palpation above the pubic symphysis and on the right side on the pubic bone, this produces wincing pain, there is edema and swelling noted at the urethra and in the suprapubic region PT-OP-M Strength Start: 09/10/18 13:08 Freq: Status: Active Protocol: Document 09/09/18 13:11 [facility] (Rec: 09/10/18 13:51 [facility] [email or web address]) Trunk Strength Trunk Manual Muscle Testing Core Stabilization poor core stabilization s/p and vaginal delivery , + ASLR B and there is excessive pelvic movement with any LE movement PT-OP-Q Treatments Start: 09/10/18 13:08 Freq: Status: Active Protocol: Document 09/09/18 13:11 [facility] (Rec: 09/10/18 13:51 [facility] [email or web address]) Therapeutic Exercises Supine Exercises 2 Supine Exercise Name isometric ball squeeze Reps/Minutes 10 reps x 10 seconds 1 Supine Exercise Name The patient was educated in TA bracing, pelvic floor long holds Reps/Minutes 10 reps x 10 second hold time Self-Care/Home Management Treatment Education Patient Education [employer] Mechanics Home Exercise Program Joint Protection Other Education The patient was educated on a SI belt to wear, avoiding single leg stance activities PT-OP-T Assessment and Plan Start: 09/10/18 13:08 Freq: Status: Active Protocol: Document 09/09/18 13:11 [facility] (Rec: 09/10/18 13:51 [facility] [email or web address]) Physical Therapy Assessment Rehab Potential Rehabilitation Potential Excellent Evaluation Complexity Number of Personal Factors/Comorbidities 0 Number of Body Systems Impaired 3 Clinical Presentation at Evaluation Stable Impairments Impairments Activity Tolerance Edema Pain Soft Tissue Mobility Strength Goals Five Impairment c/o pelvic pain and pelvic heaviness [employer]etters [employer]inter Goal (LTG) With treatment to improve force closure of the SI joint and pubic symphysis, strengthening the pelvic floor , and reducing swelling at the urethra and supra pubic region there is decreased feeling of pain and pelvic heaviness. Shira is able to begin returning to walking and ADL's without pain. LTG Duration 6-8 weeks Four Impairment Weakness of the pelvic floor 2 /5 MMT Custodial Goal (LTG) Improve strength of all parts of the Levator ani with pelvic floor NMRE and strengthening utilizing EMG biofeedback. Improve MMT to 3/5 or better LTG Duration 6-8 weeks Three Impairment pain to palpation at the pubic symphysis and urethra Short Term Goal (STG) Reduce pain to palpation at the pubic bone by correcting SI alignment and improving the force closure of the SI joint . Reduce pain at the urethra by decreasing inflammation in the area STG Duration 4 weeks Two Impairment pelvic instability with any LE movement Short Term Goal (STG) Shira is taught how to facilitate her pelvic floor and transverse abdominal muscles to stabilize her pelvis to decrease excessive pelvic movement with LE movement and to decrease pain STG Duration 4 weeks One Impairment poor force closure of the SI joint and pubic symphysis s/p Short Term Goal (STG) Shira will be instructed in the use of a SI belt or core shorts for improved SI stability while she is working to improve stabiilzation of her inner core STG Duration 4 weeks Assessment Summary Assessment Shira presents to physical therapy today with signs and symptoms of pelvic pain and weakness s/p her vaginal delivery 12 weeks ago. With examination it is apparent that her SI joint is very mobile and she lacks full force closure of her ring of support. She is point tender on top of the pubic bone and she describes a crushing sensation in this area. She is not stable at the pubic bone and with any LE movement while in supine on the examination table there was excessive pelvic movement. With internal examination the levator ani is a 2/5 in all regions except the posterior wall. There is swelling noted around the urethra and the urethra itself feels swollen as well as the suprapubic region. I did feel a small rectocele but did not find a cystocele. Treatment today included facilitation of the pelvic floor and transverse abdominals using EMG biofeedback to help brace the SI joint. I did show Shira a SI belt as I feel she would benefit from this or core compression shorts to give her extra support to her pelvis at this time. We discussed avoiding any single leg stance activities and positions she could go to for comfort. She responded well to treatment today. Physical Therapy Plan Frequency and Duration Frequency of Treatment 1x/Week Duration of Treatment 8 weeks Plan of Care Start Date 09/09/18 Plan of Care End Date 11/11/18 Therapeutic Interventions Therapeutic Interventions Home Exercise Program Manual Therapy Neuromuscular Re-education Self-Care/Home Management Therapeutic Exercises Next Visit Focus/Plan Next Note Type Treatment Note Next Visit Plan review SI belt, correct right innominant out flare and continue to progress stabilization exercises
--- NOTE | 2018-09-23 14:36 | PT.OTN ---
Current Diagnoses Other specified disorders of muscle (09/23/18) Other specified diseases and conditions complicating , childbirth and the puerperium (09/23/18) Pelvic and perineal pain (09/23/18) Physical Therapy Treatment Note PT-OP-A Visit Information Start: 09/10/18 13:08 Freq: Status: Active Protocol: Document 09/23/18 14:26 [facility] (Rec: 09/23/18 14:36 [facility] [email or web address]) Out-Patient Physical Therapy Visit Information Visit Information Visit Type Treatment Note Visit Start Time 13:00 Visit Stop Time 13:45 Total Visit Minutes 45 Visit Number 2 Evaluation Information Evaluation Date 09/09/18 PT-OP-B Current Condition Start: 09/10/18 13:08 Freq: Status: Active Protocol: Document 09/09/18 13:11 [facility] (Rec: 09/10/18 13:51 [facility] [email or web address]) Current Condition History of Current Condition Onset Date 12 weeks ago with vaginal delivery Current Complaints c/o pelvic pressure, heaviness , pain, urethral irritation, pubic pain, weak History of Current Condition 33 year female 12 months with her second delivery. She notes she was in labor 22 hours but the pushing phase was extremely fast only lasting 5 minutes. At 2 weeks she began to feel that her insides were going to fall out and she wasn't able to do anything that required lifting. She did recently undergo a umbilical hernia surgery and this has not changed her pelvic pressure. Currently she describes continueing to feel the pelvic pressure, she feels as is she is sitting on something internal and has to stand with her legs crossed for support. Shira reprots she has been on 3 rounds of antibiotics for symptoms of a UTI and she will often feel a burning sensation when she nees to void. She has had a strong smelling urine along with a discharge. She also reports feeling a crushing sensation at her pubic bone. Her past medical history includes a previous vaginal delivery in 2014 with no problems following Treatment Goals Patient/Caregiver Goals [place] goals include decreasing her pain levels, decreasing the feeling that her internal organs are going to fall out and be able to increase her activity level Prior Functional Status Baseline Function- ADL's Independent Baseline Function- Mobility Independent Baseline Function- Recreation/Hobbies No restrictions Current Functional Impairments (Reported) Functional Limitations- Mobility/Gait limited in walking distance due to pain and instability Functional Limitations- Recreation/ limited in exercise due to Hobbies instability and pain, she has not been able to return to intercourse with her due to pain PT-OP-C Subjective Start: 09/10/18 13:08 Freq: Status: Active Protocol: Document 09/23/18 14:26 [facility] (Rec: 09/23/18 14:36 [facility] [email or web address]) OP-PT Subjective Patient Comments Patient Comments Shira reports she has been able to get in and out of bed better and has been able to sit-stand better. It hurts to carry the car seat with her 3 month old and she is still feeling bladder pain symptoms as well as urethral pain prior to voiding. She also feels pelvic pressure and has to cross her legs when standing PT-OP-I Pelvic Floor Start: 09/10/18 13:08 Freq: Status: Active Protocol: Document 09/09/18 13:11 [facility] (Rec: 09/10/18 13:51 [facility] [email or web address]) Pelvic Floor Assessment Urine Pelvic Floor Surgery No Urinary Symptoms Pain Other Urinary Symptoms strong odor of urine when voiding, not always voiding completely, 3 UTI's since her delivery 12 weeks ago Pelvic Clock Pelvic Clock 12-3 Tenderness Pelvic Clock 3-6 Tenderness Pelvic Clock Other palpable swelling noted at the urethra and on either side of the urethra as well as in the suprapubic region internally small rectocele palpated in the posterior wall Prolapse Rectocele Grade 2 SEMG (uV) Baseline 1.5 10 Second Contraction 3.2 Recruitment Pattern Poor/Slow Relaxation Fair Holding Poor/Slow Stability of Hold Poor/Slow SEMG Stability of Rest Fair Contraction Ability Voluntary Contraction Weak Manual Muscle Testing Left 2 Manual Muscle Testing Right 2 Manual Muscle Testing Anterior 2 Manual Muscle Testing Posterior 3 Muscle Endurance (Seconds) 3 PT-OP-J Posture/Palpation/Skin Start: 09/10/18 13:08 Freq: Status: Active Protocol: Document 09/09/18 13:11 [facility] (Rec: 09/10/18 13:51 [facility] [email or web address]) Palpation Assessment Location Two Palpation Location Right innominant outflare Palpation Details outflare of the right innominant One Palpation Location pubic bone, anterior pelvic floor Palpation Findings Edema Tenderness Palpation Details There is a great deal of pain to palpation above the pubic symphysis and on the right side on the pubic bone, this produces wincing pain, there is edema and swelling noted at the urethra and in the suprapubic region PT-OP-M Strength Start: 09/10/18 13:08 Freq: Status: Active Protocol: Document 09/09/18 13:11 [facility] (Rec: 09/10/18 13:51 [facility] [email or web address]) Trunk Strength Trunk Manual Muscle Testing Core Stabilization poor core stabilization s/p and vaginal delivery , + ASLR B and there is excessive pelvic movement with any LE movement PT-OP-Q Treatments Start: 09/10/18 13:08 Freq: Status: Active Protocol: Document 09/23/18 14:26 [facility] (Rec: 09/23/18 14:36 [facility] [email or web address]) Therapeutic Exercises Supine Exercises 4 Supine Exercise Name TA with marches and heel slides 3 Supine Exercise Name quick pelvic floor contractions 2 Supine Exercise Name isometric ball squeeze Reps/Minutes 10 reps x 10 seconds 1 Supine Exercise Name The patient was educated in TA bracing, pelvic floor long holds Reps/Minutes 10 reps x 10 second hold time Other Exercises 2 Other Exercise Name cat cow with pelvic tilts Reps/Minutes x 10 reps 1 Other Exercise Name quadraped TA facilitation Reps/Minutes x 10 reps Manual Therapy Treatment Manual Techniques 2 Type recheck of pubic alignment and sacral alignment 1 Type MET for right anterior innominant Comments good tolerance PT-OP-T Assessment and Plan Start: 09/10/18 13:08 Freq: Status: Active Protocol: Document 09/23/18 14:26 [facility] (Rec: 09/23/18 14:36 [facility] [email or web address]) Physical Therapy Assessment Assessment Summary Assessment Shira was able to relax her pelvic floor to baseline today on EMG biofeedback. Her average was 3.0 and max of 22 .1 We did to a temporary SI belt for her to try out this week. She may also benefit from a V2 support strap due to her feeling of instability. Physical Therapy Plan Frequency and Duration Frequency of Treatment 1x/Week Duration of Treatment 8 weeks Plan of Care Start Date 09/09/18 Plan of Care End Date 11/11/18 Therapeutic Interventions Therapeutic Interventions Home Exercise Program Manual Therapy Neuromuscular Re-education Self-Care/Home Management Therapeutic Exercises Next Visit Focus/Plan Next Note Type Treatment Note Next Visit Plan progress stabilization exercises as tolerated, consider laser to the pubic region
--- NOTE | 2018-09-30 15:54 | PT.OTN ---
Current Diagnoses Other specified disorders of muscle (09/30/18) Other specified diseases and conditions complicating , childbirth and the puerperium (09/30/18) Pelvic and perineal pain (09/30/18) Physical Therapy Treatment Note PT-OP-A Visit Information Start: 09/10/18 13:08 Freq: Status: Active Protocol: Document 09/30/18 15:44 [facility] (Rec: 09/30/18 15:51 [facility] [id number]) Out-Patient Physical Therapy Visit Information Visit Information Visit Type Treatment Note Visit Start Time 13:00 Visit Stop Time 13:45 Total Visit Minutes 45 Visit Number 3 Evaluation Information Evaluation Date 09/09/18 PT-OP-B Current Condition Start: 09/10/18 13:08 Freq: Status: Active Protocol: Document 09/09/18 13:11 [facility] (Rec: 09/10/18 13:51 [facility] [email or web address]) Current Condition History of Current Condition Onset Date 12 weeks ago with vaginal delivery Current Complaints c/o pelvic pressure, heaviness , pain, urethral irritation, pubic pain, weak History of Current Condition 33 year female 12 months with her second delivery. She notes she was in labor 22 hours but the pushing phase was extremely fast only lasting 5 minutes. At 2 weeks she began to feel that her insides were going to fall out and she wasn't able to do anything that required lifting. She did recently undergo a umbilical hernia surgery and this has not changed her pelvic pressure. Currently she describes continueing to feel the pelvic pressure, she feels as is she is sitting on something internal and has to stand with her legs crossed for support. Shira reprots she has been on 3 rounds of antibiotics for symptoms of a UTI and she will often feel a burning sensation when she nees to void. She has had a strong smelling urine along with a discharge. She also reports feeling a crushing sensation at her pubic bone. Her past medical history includes a previous vaginal delivery in 2014 with no problems following Treatment Goals Patient/Caregiver Goals [place] goals include decreasing her pain levels, decreasing the feeling that her internal organs are going to fall out and be able to increase her activity level Prior Functional Status Baseline Function- ADL's Independent Baseline Function- Mobility Independent Baseline Function- Recreation/Hobbies No restrictions Current Functional Impairments (Reported) Functional Limitations- Mobility/Gait limited in walking distance due to pain and instability Functional Limitations- Recreation/ limited in exercise due to Hobbies instability and pain, she has not been able to return to intercourse with her due to pain PT-OP-C Subjective Start: 09/10/18 13:08 Freq: Status: Active Protocol: Document 09/30/18 15:44 [facility] (Rec: 09/30/18 15:51 [facility] [id number]) OP-PT Subjective Patient Comments Patient Comments decreased c/o pelvic pressure, still feeling the burning pain at the urethra that is present most of the time PT-OP-I Pelvic Floor Start: 09/10/18 13:08 Freq: Status: Active Protocol: Document 09/09/18 13:11 [facility] (Rec: 09/10/18 13:51 [facility] [email or web address]) Pelvic Floor Assessment Urine Pelvic Floor Surgery No Urinary Symptoms Pain Other Urinary Symptoms strong odor of urine when voiding, not always voiding completely, 3 UTI's since her delivery 12 weeks ago Pelvic Clock Pelvic Clock 12-3 Tenderness Pelvic Clock 3-6 Tenderness Pelvic Clock Other palpable swelling noted at the urethra and on either side of the urethra as well as in the suprapubic region internally small rectocele palpated in the posterior wall Prolapse Rectocele Grade 2 SEMG (uV) Baseline 1.5 10 Second Contraction 3.2 Recruitment Pattern Poor/Slow Relaxation Fair Holding Poor/Slow Stability of Hold Poor/Slow SEMG Stability of Rest Fair Contraction Ability Voluntary Contraction Weak Manual Muscle Testing Left 2 Manual Muscle Testing Right 2 Manual Muscle Testing Anterior 2 Manual Muscle Testing Posterior 3 Muscle Endurance (Seconds) 3 PT-OP-J Posture/Palpation/Skin Start: 09/10/18 13:08 Freq: Status: Active Protocol: Document 09/09/18 13:11 [facility] (Rec: 09/10/18 13:51 [facility] [email or web address]) Palpation Assessment Location Two Palpation Location Right innominant outflare Palpation Details outflare of the right innominant One Palpation Location pubic bone, anterior pelvic floor Palpation Findings Edema Tenderness Palpation Details There is a great deal of pain to palpation above the pubic symphysis and on the right side on the pubic bone, this produces wincing pain, there is edema and swelling noted at the urethra and in the suprapubic region PT-OP-M Strength Start: 09/10/18 13:08 Freq: Status: Active Protocol: Document 09/09/18 13:11 [facility] (Rec: 09/10/18 13:51 [facility] [email or web address]) Trunk Strength Trunk Manual Muscle Testing Core Stabilization poor core stabilization s/p and vaginal delivery , + ASLR B and there is excessive pelvic movement with any LE movement PT-OP-Q Treatments Start: 09/10/18 13:08 Freq: Status: Active Protocol: Document 09/30/18 15:44 [facility] (Rec: 09/30/18 15:51 [facility] [id number]) Therapeutic Exercises Supine Exercises 6 Supine Exercise Name piriformis stretch 5 Supine Exercise Name hip roll outs with theraband 4 Supine Exercise Name TA with marches and heel slides Prone Exercises 1 Prone Exercise Name prone on elbows to stretch the bladder Other Exercises 1 Other Exercise Name quadraped TA facilitation Reps/Minutes x 10 reps Manual Therapy Treatment Soft Tissue Mobilization 1 Body Location MFR in the supra pubic fascia Manual Techniques 2 Type recheck of pubic alignment and sacral alignment Self-Care/Home Management Treatment Education Other Education discussed referral to urologist if swelling does not decrease at the urethra, trial of ice for home, discussion of home exercises to start stretching out the fascia on top of the pubic bone PT-OP-T Assessment and Plan Start: 09/10/18 13:08 Freq: Status: Active Protocol: Document 09/30/18 15:44 [facility] (Rec: 09/30/18 15:51 [facility] [id number]) Physical Therapy Assessment Assessment Summary Assessment improved tone on EMG biofeedback today with average of 7.8 uv and max of 44 uv. Improved alignment of the SI joint. Still c/o urethral buring pain. SI belt did not work for shira. Femme jock may be of benefit. Trial of MFR ove the supra pubic fasic today and added a stretch for the bladder in prone Physical Therapy Plan Frequency and Duration Frequency of Treatment 1x/Week Duration of Treatment 8 weeks Plan of Care Start Date 09/09/18 Plan of Care End Date 11/11/18 Therapeutic Interventions Therapeutic Interventions Home Exercise Program Manual Therapy Neuromuscular Re-education Self-Care/Home Management Therapeutic Exercises Next Visit Focus/Plan Next Note Type Treatment Note Next Visit Plan reassess internal examination of the pelvic floor next visit . Possible laser treatment for the pubic region
--- NOTE | 2018-11-03 10:12 | PT.OTN ---
Current Diagnoses Other specified disorders of muscle (10/29/18) Other specified diseases and conditions complicating , childbirth and the puerperium (10/29/18) Pelvic and perineal pain (10/29/18) Physical Therapy Treatment Note PT-OP-A Visit Information Start: 09/10/18 13:08 Freq: Status: Active Protocol: Document 10/29/18 15:15 [facility] (Rec: 11/01/18 20:21 [facility] [email or web address]) Out-Patient Physical Therapy Visit Information Visit Information Visit Type Progress Note Visit Start Time 15:15 Visit Stop Time 16:00 Total Visit Minutes 45 Visit Number 4 Evaluation Information Evaluation Date 09/09/18 PT-OP-B Current Condition Start: 09/10/18 13:08 Freq: Status: Active Protocol: Document 09/09/18 13:11 [facility] (Rec: 09/10/18 13:51 [facility] [email or web address]) Current Condition History of Current Condition Onset Date 12 weeks ago with vaginal delivery Current Complaints c/o pelvic pressure, heaviness , pain, urethral irritation, pubic pain, weak History of Current Condition 33 year female 12 months with her second delivery. She notes she was in labor 22 hours but the pushing phase was extremely fast only lasting 5 minutes. At 2 weeks she began to feel that her insides were going to fall out and she wasn't able to do anything that required lifting. She did recently undergo a umbilical hernia surgery and this has not changed her pelvic pressure. Currently she describes continueing to feel the pelvic pressure, she feels as is she is sitting on something internal and has to stand with her legs crossed for support. Shira reprots she has been on 3 rounds of antibiotics for symptoms of a UTI and she will often feel a burning sensation when she nees to void. She has had a strong smelling urine along with a discharge. She also reports feeling a crushing sensation at her pubic bone. Her past medical history includes a previous vaginal delivery in 2014 with no problems following Treatment Goals Patient/Caregiver Goals [place] goals include decreasing her pain levels, decreasing the feeling that her internal organs are going to fall out and be able to increase her activity level Prior Functional Status Baseline Function- ADL's Independent Baseline Function- Mobility Independent Baseline Function- Recreation/Hobbies No restrictions Current Functional Impairments (Reported) Functional Limitations- Mobility/Gait limited in walking distance due to pain and instability Functional Limitations- Recreation/ limited in exercise due to Hobbies instability and pain, she has not been able to return to intercourse with her due to pain PT-OP-C Subjective Start: 09/10/18 13:08 Freq: Status: Active Protocol: Document 10/29/18 15:15 [facility] (Rec: 11/03/18 10:12 [facility] [email or web address]) OP-PT Subjective Patient Comments Patient Comments Shira reports she was having pain from kidney stone and became very sick 10/08/18. She was seen at [facility] ER and referred to urologist for consult. Urology did surgery to remove the stone and found a infection in her ureter (per patient report) This was cleaned out and she was placed on Bactrim antibiotic. She reports many of her symptoms were gone following this surgery and she is no longer experiencing the severe pubic pain or burning. PT-OP-I Pelvic Floor Start: 09/10/18 13:08 Freq: Status: Active Protocol: Document 10/29/18 15:15 [facility] (Rec: 11/03/18 10:12 [facility] [email or web address]) Pelvic Floor Assessment Pelvic Clock Pelvic Clock Other there is no longer swelling noted with examination today on either side of the urethra. Improved facilitation of the pelvic floor with manual muscle test today. SEMG (uV) Baseline 0 10 Second Contraction 8.5 Recruitment Pattern Good Relaxation Good Holding Fair Stability of Hold Fair SEMG Stability of Rest Good Contraction Ability Manual Muscle Testing Left 4 Manual Muscle Testing Right 4 Manual Muscle Testing Anterior 4 Manual Muscle Testing Posterior 4 Muscle Endurance (Seconds) 8 Comments Pelvic Floor Comments maximum pelvic floor contraction is 14.5 uv PT-OP-J Posture/Palpation/Skin Start: 09/10/18 13:08 Freq: Status: Active Protocol: Document 09/09/18 13:11 [facility] (Rec: 09/10/18 13:51 [facility] [email or web address]) Palpation Assessment Location Two Palpation Location Right innominant outflare Palpation Details outflare of the right innominant One Palpation Location pubic bone, anterior pelvic floor Palpation Findings Edema Tenderness Palpation Details There is a great deal of pain to palpation above the pubic symphysis and on the right side on the pubic bone, this produces wincing pain, there is edema and swelling noted at the urethra and in the suprapubic region PT-OP-M Strength Start: 09/10/18 13:08 Freq: Status: Active Protocol: Document 09/09/18 13:11 [facility] (Rec: 09/10/18 13:51 [facility] [email or web address]) Trunk Strength Trunk Manual Muscle Testing Core Stabilization poor core stabilization s/p and vaginal delivery , + ASLR B and there is excessive pelvic movement with any LE movement PT-OP-Q Treatments Start: 09/10/18 13:08 Freq: Status: Active Protocol: Document 10/29/18 15:15 [facility] (Rec: 11/03/18 10:12 [facility] [email or web address]) Therapeutic Exercises Supine Exercises 8 Supine Exercise Name templates for eccentric control and coordination of the pelvic floor 7 Supine Exercise Name pelvic floor long holds for 10 second contraction and 10 second rest Reps/Minutes 10 reps 3 Supine Exercise Name quick pelvic floor contractions 2 Supine Exercise Name isometric ball squeeze Reps/Minutes 10 reps x 10 seconds PT-OP-T Assessment and Plan Start: 09/10/18 13:08 Freq: Status: Active Protocol: Document 10/29/18 15:15 [facility] (Rec: 11/03/18 10:12 [facility] [email or web address]) Physical Therapy Assessment Assessment Summary Assessment Shira demonstrates good improvement of pelvic floor facilitation and tone today with reexamination. She has been seen in PT for a total of 4 visits. It appears removing the kidney stone and the infection that was there has really helped take away some of the pain she was experiencing. I did not feel the swelling today with internal assessment of her urethra. I feel Shira would benefit from continued PT working towards dynamic stabilization and pelvic floor strengthening in upright positions. Physical Therapy Plan Frequency and Duration Frequency of Treatment 1x/Week Duration of Treatment 8 weeks Plan of Care Start Date 10/29/18 Plan of Care End Date 12/24/18 Therapeutic Interventions Therapeutic Interventions Home Exercise Program Manual Therapy Neuromuscular Re-education Self-Care/Home Management Therapeutic Exercises Next Visit Focus/Plan Next Note Type Treatment Note Next Visit Plan begin with dynamic lumbar stabilization exercises next visit and progress pelvic floor strengthening to upright positions.
--- NOTE | 2018-11-03 10:13 | PT.OPPOC ---
Current Diagnoses Other specified disorders of muscle (10/29/18) Other specified diseases and conditions complicating , childbirth and the puerperium (10/29/18) Pelvic and perineal pain (10/29/18) Provider Visit Care Team Role Provider Type Lexie Quinn MD Attending Provider Physician Primary Care Provider Specialty: Family Practice Address: [address] [place] [address] Email: [email or web address] Plan Of Care PT-OP-T Assessment and Plan Start: 09/10/18 13:08 Freq: Status: Active Protocol: Document 10/29/18 15:15 [facility] (Rec: 11/03/18 10:12 [facility] [email or web address]) Physical Therapy Assessment Assessment Summary Assessment Shira demonstrates good improvement of pelvic floor facilitation and tone today with reexamination. She has been seen in PT for a total of 4 visits. It appears removing the kidney stone and the infection that was there has really helped take away some of the pain she was experiencing. I did not feel the swelling today with internal assessment of her urethra. I feel Shira would benefit from continued PT working towards dynamic stabilization and pelvic floor strengthening in upright positions. Physical Therapy Plan Frequency and Duration Frequency of Treatment 1x/Week Duration of Treatment 8 weeks Plan of Care Start Date 10/29/18 Plan of Care End Date 12/24/18 Therapeutic Interventions Therapeutic Interventions Home Exercise Program Manual Therapy Neuromuscular Re-education Self-Care/Home Management Therapeutic Exercises Next Visit Focus/Plan Next Note Type Treatment Note Next Visit Plan begin with dynamic lumbar stabilization exercises next visit and progress pelvic floor strengthening to upright positions. Plan of Care Dates Plan of Care Start Date 10/29/18 Plan of Care End Date 12/24/18 Please Sign and Return: I have reviewed this Plan of Care and certify that the skilled therapy services above are required to meet the patient?s needs. Physician Signature Date Printed Name and Credentials Clinical Instructor Signature Printed Name and Credentials
--- NOTE | 2018-11-05 16:37 | PT.OTN ---
Current Diagnoses Other specified disorders of muscle (11/05/18) Other specified diseases and conditions complicating , childbirth and the puerperium (11/05/18) Pelvic and perineal pain (11/05/18) Physical Therapy Treatment Note PT-OP-A Visit Information Start: 09/10/18 13:08 Freq: Status: Active Protocol: Document 11/05/18 16:18 [facility] (Rec: 11/05/18 16:37 [facility] [email or web address]) Out-Patient Physical Therapy Visit Information Visit Information Visit Type Treatment Note Visit Start Time 15:15 Visit Stop Time 16:00 Total Visit Minutes 45 Visit Number 5 Evaluation Information Evaluation Date 09/09/18 PT-OP-B Current Condition Start: 09/10/18 13:08 Freq: Status: Active Protocol: Document 09/09/18 13:11 [facility] (Rec: 09/10/18 13:51 [facility] [email or web address]) Current Condition History of Current Condition Onset Date 12 weeks ago with vaginal delivery Current Complaints c/o pelvic pressure, heaviness , pain, urethral irritation, pubic pain, weak History of Current Condition 33 year female 12 months with her second delivery. She notes she was in labor 22 hours but the pushing phase was extremely fast only lasting 5 minutes. At 2 weeks she began to feel that her insides were going to fall out and she wasn't able to do anything that required lifting. She did recently undergo a umbilical hernia surgery and this has not changed her pelvic pressure. Currently she describes continueing to feel the pelvic pressure, she feels as is she is sitting on something internal and has to stand with her legs crossed for support. Shira reprots she has been on 3 rounds of antibiotics for symptoms of a UTI and she will often feel a burning sensation when she nees to void. She has had a strong smelling urine along with a discharge. She also reports feeling a crushing sensation at her pubic bone. Her past medical history includes a previous vaginal delivery in 2014 with no problems following Treatment Goals Patient/Caregiver Goals [place] goals include decreasing her pain levels, decreasing the feeling that her internal organs are going to fall out and be able to increase her activity level Prior Functional Status Baseline Function- ADL's Independent Baseline Function- Mobility Independent Baseline Function- Recreation/Hobbies No restrictions Current Functional Impairments (Reported) Functional Limitations- Mobility/Gait limited in walking distance due to pain and instability Functional Limitations- Recreation/ limited in exercise due to Hobbies instability and pain, she has not been able to return to intercourse with her due to pain PT-OP-C Subjective Start: 09/10/18 13:08 Freq: Status: Active Protocol: Document 11/05/18 16:18 [facility] (Rec: 11/05/18 16:37 [facility] [email or web address]) OP-PT Subjective Patient Comments Patient Comments Able to have intercourse on and did fine. She notes though that she is experiencing cramping type pain across the front of her abdomen and is not sure if this is from beginning ovulation or cramping from her pelvic floor. She is also noting a discharge that occurs every time she voids and with walking PT-OP-I Pelvic Floor Start: 09/10/18 13:08 Freq: Status: Active Protocol: Document 10/29/18 15:15 [facility] (Rec: 11/03/18 10:12 [facility] [email or web address]) Pelvic Floor Assessment Pelvic Clock Pelvic Clock Other there is no longer swelling noted with examination today on either side of the urethra. Improved facilitation of the pelvic floor with manual muscle test today. SEMG (uV) Baseline 0 10 Second Contraction 8.5 Recruitment Pattern Good Relaxation Good Holding Fair Stability of Hold Fair SEMG Stability of Rest Good Contraction Ability Manual Muscle Testing Left 4 Manual Muscle Testing Right 4 Manual Muscle Testing Anterior 4 Manual Muscle Testing Posterior 4 Muscle Endurance (Seconds) 8 Comments Pelvic Floor Comments maximum pelvic floor contraction is 14.5 uv PT-OP-J Posture/Palpation/Skin Start: 09/10/18 13:08 Freq: Status: Active Protocol: Document 09/09/18 13:11 [facility] (Rec: 09/10/18 13:51 [facility] [email or web address]) Palpation Assessment Location Two Palpation Location Right innominant outflare Palpation Details outflare of the right innominant One Palpation Location pubic bone, anterior pelvic floor Palpation Findings Edema Tenderness Palpation Details There is a great deal of pain to palpation above the pubic symphysis and on the right side on the pubic bone, this produces wincing pain, there is edema and swelling noted at the urethra and in the suprapubic region PT-OP-M Strength Start: 09/10/18 13:08 Freq: Status: Active Protocol: Document 09/09/18 13:11 [facility] (Rec: 09/10/18 13:51 [facility] [email or web address]) Trunk Strength Trunk Manual Muscle Testing Core Stabilization poor core stabilization s/p and vaginal delivery , + ASLR B and there is excessive pelvic movement with any LE movement PT-OP-Q Treatments Start: 09/10/18 13:08 Freq: Status: Active Protocol: Document 11/05/18 16:18 [facility] (Rec: 11/05/18 16:37 [facility] [email or web address]) Therapeutic Exercises Supine Exercises 7 Supine Exercise Name pelvic floor long holds for 10 second contraction and 10 second rest Reps/Minutes 10 reps 4 Supine Exercise Name TA with marches and heel slides 3 Supine Exercise Name quick pelvic floor contractions 2 Supine Exercise Name isometric ball squeeze Reps/Minutes 10 reps x 10 seconds Manual Therapy Treatment Soft Tissue Mobilization 3 Body Location coccygeus release on the right 2 Body Location manual stretch and MFR of the transverse perineal musculature 1 Body Location MFR in the supra pubic fascia Manual Techniques 2 Type recheck of pubic alignment and sacral alignment PT-OP-T Assessment and Plan Start: 09/10/18 13:08 Freq: Status: Active Protocol: Document 11/05/18 16:18 [facility] (Rec: 11/05/18 16:37 [facility] [email or web address]) Physical Therapy Assessment Assessment Summary Assessment left transverse perienal tightness today, right coccygeus tightness but this relaxed easily with manual release today. There is no myofascial tightness across the abdominal wall that I am feeling, the rectocele is still present. I reviewed pelvic floor exercises with Shira today, discussed elevating her pelvis with legs up the wall, stretching the transverse perineal muscle with v adductor stretch and right coccygeus with piriformis stretches and happy baby. Her endurance today was improved and EMG and resting tone decreased close to baseline after exercises. Average on EMG is 8.4 and maximum contraction is 13.2 uv . I did talk to Shira about talking to her doctor about the discharge. Physical Therapy Plan Frequency and Duration Frequency of Treatment 1x/Week Duration of Treatment 8 weeks Plan of Care Start Date 10/29/18 Plan of Care End Date 12/24/18 Therapeutic Interventions Therapeutic Interventions Home Exercise Program Manual Therapy Neuromuscular Re-education Self-Care/Home Management Therapeutic Exercises Next Visit Focus/Plan Next Note Type Treatment Note Next Visit Plan Shira will work on her own for a month with exercises and recheck back in at that time for progressing her exercises
--- NOTE | 2018-12-03 17:06 | PT.OTN ---
Current Diagnoses Other specified disorders of muscle (12/03/18) Other specified diseases and conditions complicating , childbirth and the puerperium (12/03/18) Pelvic and perineal pain (12/03/18) Physical Therapy Treatment Note PT-OP-A Visit Information Start: 09/10/18 13:08 Freq: Status: Active Protocol: Document 12/03/18 16:51 [facility] (Rec: 12/03/18 17:06 [facility] [email or web address]) Out-Patient Physical Therapy Visit Information Visit Information Visit Type Re-Evaluation Visit Start Time 16:00 Visit Stop Time 16:45 Total Visit Minutes 45 Visit Number 6 Evaluation Information Evaluation Date 09/09/18 PT-OP-B Current Condition Start: 09/10/18 13:08 Freq: Status: Active Protocol: Document 09/09/18 13:11 [facility] (Rec: 09/10/18 13:51 [facility] [email or web address]) Current Condition History of Current Condition Onset Date 12 weeks ago with vaginal delivery Current Complaints c/o pelvic pressure, heaviness , pain, urethral irritation, pubic pain, weak History of Current Condition 33 year female 12 months with her second delivery. She notes she was in labor 22 hours but the pushing phase was extremely fast only lasting 5 minutes. At 2 weeks she began to feel that her insides were going to fall out and she wasn't able to do anything that required lifting. She did recently undergo a umbilical hernia surgery and this has not changed her pelvic pressure. Currently she describes continueing to feel the pelvic pressure, she feels as is she is sitting on something internal and has to stand with her legs crossed for support. Shira reprots she has been on 3 rounds of antibiotics for symptoms of a UTI and she will often feel a burning sensation when she nees to void. She has had a strong smelling urine along with a discharge. She also reports feeling a crushing sensation at her pubic bone. Her past medical history includes a previous vaginal delivery in 2014 with no problems following Treatment Goals Patient/Caregiver Goals [place] goals include decreasing her pain levels, decreasing the feeling that her internal organs are going to fall out and be able to increase her activity level Prior Functional Status Baseline Function- ADL's Independent Baseline Function- Mobility Independent Baseline Function- Recreation/Hobbies No restrictions Current Functional Impairments (Reported) Functional Limitations- Mobility/Gait limited in walking distance due to pain and instability Functional Limitations- Recreation/ limited in exercise due to Hobbies instability and pain, she has not been able to return to intercourse with her due to pain PT-OP-C Subjective Start: 09/10/18 13:08 Freq: Status: Active Protocol: Document 12/03/18 16:51 [facility] (Rec: 12/03/18 17:06 [facility] [email or web address]) OP-PT Subjective Patient Comments Patient Comments Shira reports she is doing much better overall. She has decreased pain with intercourse and is no longer feeling the pelvic pressure. She is able to use the carrier now with her baby and is not feeling as if things are falling out. She has had a follow up with urology and signs of infection are no longer present. PT-OP-I Pelvic Floor Start: 09/10/18 13:08 Freq: Status: Active Protocol: Document 10/29/18 15:15 [facility] (Rec: 11/03/18 10:12 [facility] [email or web address]) Pelvic Floor Assessment Pelvic Clock Pelvic Clock Other there is no longer swelling noted with examination today on either side of the urethra. Improved facilitation of the pelvic floor with manual muscle test today. SEMG (uV) Baseline 0 10 Second Contraction 8.5 Recruitment Pattern Good Relaxation Good Holding Fair Stability of Hold Fair SEMG Stability of Rest Good Contraction Ability Manual Muscle Testing Left 4 Manual Muscle Testing Right 4 Manual Muscle Testing Anterior 4 Manual Muscle Testing Posterior 4 Muscle Endurance (Seconds) 8 Comments Pelvic Floor Comments maximum pelvic floor contraction is 14.5 uv PT-OP-J Posture/Palpation/Skin Start: 09/10/18 13:08 Freq: Status: Active Protocol: Document 09/09/18 13:11 [facility] (Rec: 09/10/18 13:51 [facility] [email or web address]) Palpation Assessment Location Two Palpation Location Right innominant outflare Palpation Details outflare of the right innominant One Palpation Location pubic bone, anterior pelvic floor Palpation Findings Edema Tenderness Palpation Details There is a great deal of pain to palpation above the pubic symphysis and on the right side on the pubic bone, this produces wincing pain, there is edema and swelling noted at the urethra and in the suprapubic region PT-OP-M Strength Start: 09/10/18 13:08 Freq: Status: Active Protocol: Document 09/09/18 13:11 [facility] (Rec: 09/10/18 13:51 [facility] [email or web address]) Trunk Strength Trunk Manual Muscle Testing Core Stabilization poor core stabilization s/p and vaginal delivery , + ASLR B and there is excessive pelvic movement with any LE movement PT-OP-Q Treatments Start: 09/10/18 13:08 Freq: Status: Active Protocol: Document 12/03/18 16:51 [facility] (Rec: 12/03/18 17:06 [facility] [email or web address]) Therapeutic Exercises Other Exercises 5 Other Exercise Name bridge with ball squeeze Reps/Minutes 3 x 10 reps 4 Other Exercise Name modified down dog 3 Other Exercise Name quadraped sidebends 2 Other Exercise Name cat cow with pelvic tilts Reps/Minutes x 10 reps Self-Care/Home Management Treatment Education Patient Education Body Mechanics Posture Other Education education on standing postural position of avoiding sway back and hanging on Y ligaments of the hip, pt instructed to seat the femoral head back in the socket PT-OP-T Assessment and Plan Start: 09/10/18 13:08 Freq: Status: Active Protocol: Document 12/03/18 16:51 [facility] (Rec: 12/03/18 17:06 [facility] [email or web address]) Physical Therapy Assessment Goals Five Impairment c/o pelvic pain and pelvic heaviness Short Term Goal (STG) (GOAL MET 12/03/18) Halfway Goal (LTG) With treatment to improve force closure of the SI joint and pubic symphysis, strengthening the pelvic floor , and reducing swelling at the urethra and supra pubic region there is decreased feeling of pain and pelvic heaviness. Shira is able to begin returning to walking and ADL's without pain. LTG Duration 6-8 weeks Four Impairment Weakness of the pelvic floor 2 /5 MMT Short Term Goal (STG) (GOAL MET 12/03/18) Smudger Goal (LTG) Improve strength of all parts of the Levator ani with pelvic floor NMRE and strengthening utilizing EMG biofeedback. Improve MMT to 3/5 or better LTG Duration 6-8 weeks Three Impairment pain to palpation at the pubic symphysis and urethra Short Term Goal (STG) Reduce pain to palpation at the pubic bone by correcting SI alignment and improving the force closure of the SI joint . Reduce pain at the urethra by decreasing inflammation in the area STG Duration 4 weeks Halfway Goal (LTG) GOAL MET 12/03/18 Two Impairment pelvic instability with any LE movement Short Term Goal (STG) Shira is taught how to facilitate her pelvic floor and transverse abdominal muscles to stabilize her pelvis to decrease excessive pelvic movement with LE movement and to decrease pain STG Duration 4 weeks Halfway Goal (LTG) GOAL MET 12/03/18 One Impairment poor force closure of the SI joint and pubic symphysis s/p Short Term Goal (STG) Shira will be instructed in the use of a SI belt or core shorts for improved SI stability while she is working to improve stabiilzation of her inner core STG Duration 4 weeks Smudger Goal (LTG) GOAL MET 12/03/18 Progress Towards Goals Progress Towards Goals Goals Met Assessment Summary Assessment Re-evaluation was performed today and Shira is doing much better overall. She has improved pelvic floor recruitment without pelvic pain and has improved transverse abdominal recruitment. Her goals at this time have been met. She will continue to work on her home exercise program and stretching as she is just now tolerating a walking program and carrying her baby in her front pack. I updated her exercises today and progressed her. She feels independent with her home program and will be discharged at this time. Thank you for this referral. Physical Therapy Plan Discharge Physical Therapy Discharge Reasons Goals Met
== END 2018-12-04 12:10 ==
LOC: PHYS 16:00
PROVIDERS: PCP Family Medicine; Visit Provider Family Medicine
DX: M62.89 Other specified disorders of muscle (principal); R10.2 Pelvic and perineal pain; O99.89 Other specified diseases and conditions complicating pregnancy, childbirth and the puerperium
CPT/HCPCS: 97110; 97140; 97161; 97164; 97535